=== PATIENT | female | born 1955 | race Caucasian/White ===

== ENCOUNTER → 2017-10-18 | Outpatient (CLI) | payer OTHER ==
[~2017-10-18] MED LIST: ACET500; ACET500 PO; ACID REDUCER 1150 MG PO; ALBIPROI INH; ALBU4 PO; ALBU90OI INH; ALBU90OI6 INH; ALBU90OI61; ALPR.5 PO; AMLO10 PO; AMLO5 PO; ASPI325 PO; ASPI325EC; ASPI81CH PO; ASPI81EC PO; ATOR40TA; ATOR80 PO; Allergy Medicat25 MG PO; Aspir 8181 MG PO; Aspirin EC81 MG PO; BUDE10.22 IH; BUDE6HFA INH; BUPR150ER PO; BUPR150ERA PO; CARV25 PO; CARV6.25 PO; CHLO4 PO; CHOL10002 PO; CIPR500 PO; CLOP75; CLOP75 PO; Coreg PO; DOCU100 PO; Dazidox10 MG; ERGO400 PO; ERYES400 PO; ESCI20; FENO145 PO; FENO48 PO; FENT25TP TD; FENT25TP TOP; FENT75TP TOP; FISH1000 PO; Fibercon625 MG PO; Florastor250 MG PO; Furosemide20 MG PO; GABA300 PO; GLIP5 PO; GLUCOSE TABS PO; Glucophage PO; Glucose4 GM PO; HYDACE5 PO; HYDGUAL120 PO; INSULANPEN SC; ISODIN10 PO; ISOMON30; ISOMON30 PO; KRILL OIL 1,001 EAC1 PO; LEVFLO500 PO; LISHYD2012 PO; LISHYD2025 PO; LISI10; LOSA50 PO; MAGGLU250 PO; MAGOXI400 PO; METF500; METF500 PO; METF500C; METO25ER; METO25ER PO; METO50ER; METR500 PO; MIRALAX119 GM PO; MIRT15 PO; MULTIVITS PO; MULVITMIND; MULVITMIND PO; MULVITMINE PO; Magnesium Gluconate PO; NITR.4SL SL; Nitrostat0.4 MG SL; OLME20; OLME20 PO; ONDA8 PO; OXYC10ER PO; OXYGEN; PIOG15 PO; POTA10T PO; PRAV20; PRED20 PO; PSYL5.85P PO; RANI150 PO; ROSU10TA PO; ROXICODONE5 MG PO; RXHYDACE PO; SIMV40 PO; SITA100T2 PO; SPIRIVA RESPIMAT4 GM; STOOL SOFTENER1 EAC1 PO; SULI200 PO; Senna Laxative8.6 MG PO; TIOT18 IH; TIOT18 INH; VITAMIN D31000 UNIT PO; [UNRECOGNIZED DRUG - REMARK]
== END ==
LOC: LAB SRC 15:14 → LAB SHORT 15:14
DX: E78.5 Hyperlipidemia, unspecified (principal); E11.40 Type 2 diabetes mellitus with diabetic neuropathy, unspecified; R94.4 Abnormal results of kidney function studies
CPT/HCPCS: 82043

== ENCOUNTER 2020-01-23 09:57 | Inpatient (IN) | payer OTHER ==
[~2020-01-23] VITALS: Ht 167.6 cm; Wt 92.1 kg
[~2020-01-23 09:57] MED LIST changes: -ACET500; +ATOR40TA PO; +BASAGLAR K100 UNIT/1 SC; +EUTHYROX50 MCG PO; +FAMO20 PO; +FISH OIL 1,2001 EAC7 PO; -GABA300 PO; -GLIP5 PO; +GLUCOSE4 GM PO; -Glucose4 GM PO; -INSULANPEN SC; +ISOSORBIDE MONO60 MG PO; -KRILL OIL 1,001 EAC1 PO; +METF500C PO; +MOBIC15 MG PO; +SYMBICORT 160-4.6 GM INH
[2020-01-23 11:20] LABS: BASOPHILS ABSOLUTE AUTO 0.02 K/mm3 (0.00-0.23); BASOPHILS PERCENT AUTO 0 % (0-2); EOSINOPHILS ABSOLUTE AUTO 0.15 K/mm3 (0.00-0.68); EOSINOPHILS PERCENT AUTO 2 % (0-6); Hematocrit 38.7 % (33.0-51.0); Hemoglobin 12.9 g/dL (11.5-16.0); IMMATURE GRAN ABSOLUTE AUTO 0.04 K/mm3 (0.00-0.10); IMMATURE GRAN PERCENT AUTO 1 % (0-1); LYMPHOCYTES ABSOLUTE AUTO 1.06 K/mm3 (0.84-5.20); LYMPHOCYTES PERCENT AUTO 13 % (21-46); MONOCYTES ABSOLUTE AUTO 0.54 K/mm3 (0.16-1.47); MONOCYTES PERCENT AUTO 7 % (4-13); Mean Corpuscular HGB 32.7 pg (26.0-34.0); Mean Corpuscular HGB Conc 33.3 g/dL (31.5-36.5); Mean Corpuscular Volume 98 fL (80-100); Mean Platelet Volume 10.4 fL (9.1-12.4); NEUTROPHILS ABSOLUTE AUTO 6.25 K/mm3 (1.96-9.15); NEUTROPHILS PERCENT AUTO 78 % (41-73); Platelet Count 221 K/mm3 (150-400); RDW Coefficient Variation 12.8 % (11.7-14.2); RDW Standard Deviation 45.8 fL (35.1-46.3); Red Blood Cell Count 3.94 M/mm3 (3.80-5.20); White Blood Cell Count 8.06 K/mm3 (4.00-11.30)
[2020-01-23 11:36] LABS: International Normalized Ratio 1.01; Prothrombin Time Results 10.8 Sec (9.7-11.5)
[2020-01-23 11:41] LABS: Alanine Aminotransfer (ALT/SGP 22 U/L (12-78); Albumin, Blood 2.9 g/dL (3.4-5.0); Albumin/Globulin Ratio 0.7 (0.8-1.8); Alk Phos 69 U/L (50-136); Anion Gap 8 mmol/L (6-16); Aspartate Aminotrans (AST/SGOT 13 U/L (12-37); Bilirubin, Total 0.7 mg/dL (0.1-1.0); Blood Urea Nitrogen 10 mg/dL (8-24); Bun/Creatinine Ratio 13.6 (12.0-20.0); CO2, Blood 24 mmol/L (21-32); Calcium, Blood 8.7 mg/dL (8.5-10.1); Chloride, Blood 107 mmol/L (98-108); Creatinine, Blood 0.73 mg/dL (0.40-1.00); Globulin, Blood 3.9 g/dL (2.2-4.0); Glomerular Filtration Rate >60 (60-); Glucose, Blood 301 mg/dL (70-99); Potassium, Blood 3.8 mmol/L (3.5-5.5); Sodium, Blood 139 mmol/L (136-145); Total Protein, Blood 6.8 g/dL (6.4-8.2)
[2020-01-23] MEDS ORDERED: GABA300 PO (15:24)
[2020-01-23] MEDS ORDERED: GLIP5 PO ×2 (15:25→15:26)
[2020-01-23] MEDS ORDERED: ACIDOPHILUS1 EAC3 PO (15:27)
[2020-01-23] MEDS ORDERED: Hair, Skin & N1 EACH PO (15:28)
[2020-01-23] MEDS ORDERED: BENEFIBER236 G1 PO (15:28)
[2020-01-23] MEDS ORDERED: CHLO4 PO (15:35)
[2020-01-23] MEDS ORDERED: [UNRECOGNIZED DRUG - CODE] TOP (15:41)
--- NOTE | 2020-01-23 17:13 | NUR ---
SHIFT SUMMARY PATIENT TO THE ROOM LATE THIS AFTERNOON. PATIENT ARRIVED TO THE UNIT AMBULATING WITH HER WALKER. PATIENT ALERT AND ORIENTED. PATIENT PARTICIPATED IN ADMISSION ASSESSMENTS. PATIENT STATES NO FURTHER NEEDS AT THIS TIME. PATIENT RESTING IN BED.
--- NOTE | 2020-01-23 23:03 | NUR ---
2200 PT ARRIVED PER CART FROM RESEARCH ATTORNEY; PTS LEFT GROIN AND RIGHT LATERAL FOOT DRESSING DRY AND INTACT; ALERT AND ORIENTED X 4; PTS RIGHT FOOT COLD WITH NO PULSE NOTED; VITAL SIGNS STABLE. 2300 PTS C/O RIGHT LEG PAIN RATED 10/10; RIGHT CALF EDEMATOUS AND PAINFUL; DR MONDRAGON NOTIFIED WITH ORDERS FOR FENTANYL 25-100MG, Q1H, PRN, PAIN.
[2020-01-23 23:12] LABS: International Normalized Ratio 1.08; Prothrombin Time Results 11.5 Sec (9.7-11.5)
[2020-01-24 00:44] LABS: Source, Urine Catheter
[2020-01-24 00:50] LABS: Appearance, Urine Clear (Clear); Bilirubin, Urine Neg (Neg); Blood, Urine 1+ (Neg); Color, Urine Yellow (P-Yellow); Glucose Qualitative, Urine 1+ (Neg); Ketones, Urine Neg (Neg); Leukocyte Esterase, Urine Neg (Neg); Nitrite, Urine Neg (Neg); Protein, Urine Neg (Neg); Urobilinogen, Urine NORM (Normal); pH, Urine 6.5 (5.0-8.0)
[2020-01-24 00:55] LABS: Bacteria Many /hpf; Red Blood Cells, Urine 0-2 /hpf (0-2); Squamous Epithelial Cells Not Seen /hpf (Few)
[2020-01-24 09:41] LABS: BASOPHILS ABSOLUTE AUTO 0.02 K/mm3 (0.00-0.23); BASOPHILS PERCENT AUTO 0 % (0-2); EOSINOPHILS ABSOLUTE AUTO 0.04 K/mm3 (0.00-0.68); EOSINOPHILS PERCENT AUTO 0 % (0-6); Hematocrit 33.7 % (33.0-51.0); IMMATURE GRAN ABSOLUTE AUTO 0.03 K/mm3 (0.00-0.10); IMMATURE GRAN PERCENT AUTO 0 % (0-1); LYMPHOCYTES ABSOLUTE AUTO 1.02 K/mm3 (0.84-5.20); LYMPHOCYTES PERCENT AUTO 11 % (21-46); MONOCYTES ABSOLUTE AUTO 0.68 K/mm3 (0.16-1.47); MONOCYTES PERCENT AUTO 7 % (4-13); Mean Corpuscular HGB 32.5 pg (26.0-34.0); Mean Corpuscular HGB Conc 32.6 g/dL (31.5-36.5); Mean Corpuscular Volume 100 fL (80-100); Mean Platelet Volume 10.3 fL (9.1-12.4); NEUTROPHILS ABSOLUTE AUTO 7.42 K/mm3 (1.96-9.15); NEUTROPHILS PERCENT AUTO 81 % (41-73); Platelet Count 147 K/mm3 (150-400); RDW Coefficient Variation 12.9 % (11.7-14.2); RDW Standard Deviation 46.5 fL (35.1-46.3); Red Blood Cell Count 3.38 M/mm3 (3.80-5.20); White Blood Cell Count 9.21 K/mm3 (4.00-11.30)
[2020-01-24 09:45] LABS: Alanine Aminotransfer (ALT/SGP 21 U/L (12-78); Albumin/Globulin Ratio 0.9 (0.8-1.8); Alk Phos 59 U/L (50-136); Anion Gap 5 mmol/L (6-16); Aspartate Aminotrans (AST/SGOT 17 U/L (12-37); Bilirubin, Total 0.5 mg/dL (0.1-1.0); Blood Urea Nitrogen 7 mg/dL (8-24); Bun/Creatinine Ratio 9.4 (12.0-20.0); CO2, Blood 28 mmol/L (21-32); Calcium, Blood 8.5 mg/dL (8.5-10.1); Chloride, Blood 107 mmol/L (98-108); Creatinine, Blood 0.74 mg/dL (0.40-1.00); Globulin, Blood 3.5 g/dL (2.2-4.0); Glomerular Filtration Rate >60 (60-); Glucose, Blood 217 mg/dL (70-99); Potassium, Blood 3.6 mmol/L (3.5-5.5); Sodium, Blood 140 mmol/L (136-145); Total Protein, Blood 6.5 g/dL (6.4-8.2)
--- NOTE | 2020-01-24 14:00 | NUR ---
UPDATE PT TAKEN TO DAY SURGERY. WILL AWAIT RETURN.
--- NOTE | 2020-01-24 16:46 | NUR ---
UPDATE PT RETURNED FROM PACU. VS STABLE. O2 SATS REMAIN ABOVE 90% ON RA. BP STABLE. PT DENIES ANY PAIN AT THIS TIME. PT HAD THIRD TOE ON THE RIGHT FOOT AMPUTATED. WOUND IS COVERED WITH GUAZE AND ALYSIA BANDAGE. ORDERS TO KEEP DRY AND INTACT UNTIL NEW ORDERS PROVIDED. PT AWAKE AND ALERT. WILL CONTINUE TO MONITOR CLOSELY.
[2020-01-25 04:16] LABS: BASOPHILS ABSOLUTE AUTO 0.01 K/mm3 (0.00-0.23); BASOPHILS PERCENT AUTO 0 % (0-2); EOSINOPHILS PERCENT AUTO 0 % (0-6); Hematocrit 30.3 % (33.0-51.0); IMMATURE GRAN ABSOLUTE AUTO 0.03 K/mm3 (0.00-0.10); IMMATURE GRAN PERCENT AUTO 0 % (0-1); LYMPHOCYTES ABSOLUTE AUTO 0.66 K/mm3 (0.84-5.20); LYMPHOCYTES PERCENT AUTO 7 % (21-46); MONOCYTES PERCENT AUTO 5 % (4-13); Mean Corpuscular HGB 32.6 pg (26.0-34.0); Mean Corpuscular Volume 99 fL (80-100); Mean Platelet Volume 10.1 fL (9.1-12.4); NEUTROPHILS ABSOLUTE AUTO 7.81 K/mm3 (1.96-9.15); NEUTROPHILS PERCENT AUTO 88 % (41-73); Platelet Count 184 K/mm3 (150-400); RDW Coefficient Variation 12.7 % (11.7-14.2); RDW Standard Deviation 45.2 fL (35.1-46.3); Red Blood Cell Count 3.07 M/mm3 (3.80-5.20); White Blood Cell Count 8.91 K/mm3 (4.00-11.30)
[2020-01-25 04:35] LABS: Alanine Aminotransfer (ALT/SGP 18 U/L (12-78); Albumin, Blood 2.7 g/dL (3.4-5.0); Albumin/Globulin Ratio 0.8 (0.8-1.8); Alk Phos 58 U/L (50-136); Anion Gap 6 mmol/L (6-16); Aspartate Aminotrans (AST/SGOT 9 U/L (12-37); Bilirubin, Total 0.5 mg/dL (0.1-1.0); Blood Urea Nitrogen 12 mg/dL (8-24); Bun/Creatinine Ratio 14.8 (12.0-20.0); CO2, Blood 27 mmol/L (21-32); Calcium, Blood 8.4 mg/dL (8.5-10.1); Chloride, Blood 107 mmol/L (98-108); Creatinine, Blood 0.81 mg/dL (0.40-1.00); Globulin, Blood 3.6 g/dL (2.2-4.0); Glomerular Filtration Rate >60 (60-); Glucose, Blood 273 mg/dL (70-99); Potassium, Blood 3.6 mmol/L (3.5-5.5); Sodium, Blood 140 mmol/L (136-145); Total Protein, Blood 6.3 g/dL (6.4-8.2)
--- NOTE | 2020-01-25 07:38 | NUR ---
SHIFT SUMMARY PT A&O; DENIES CHEST PAIN; VSS; NSR NOTED ON TELE; R LEG WOUND COVERED, BANDAGE C/D/I; GAUZE ON AMPUTATED THIRD TOE C/D/I; O2 SATS >93 ON RA; DENIES SOB; PT DENIED NEED FOR PAIN MEDS; REPOSITIONS SELF FREQUENTLY; CALLLS APPROPRIATELY; NO DISTRESS NOTED T/O SHIFT; CALL LIGHT IN REACH; BED IN LOWEST POSITION; REPORT GIVEN TO DAY SHIFT RN.
--- NOTE | 2020-01-25 15:41 | NUR ---
SHIFT SUMMARY PT A&Ox4; CALM AND COOPERATIVE WITH CARE. PT RESTING IN BED DURING SHIFT, PIVOT TRANSFER TO WHEELCHAIR OR BEDSIDE COMMODE. PT REPORTS TENDERNESS TO RLE; DENIES NEED FOR INTERVENTION. PT DENIES SOB, NAUSEA, DIZZINESS AND CHEST PAIN. DRESSING TO RIGHT CALF CHANGED BY DR AT BEDSIDE. VSS. NO OTHER ACUTE CHANGES NOTED. PT EDUCATED ON DISCHARGE INSCTRUCTIONS, MEDICATIONS, FOLLOW UP APPOINTMENT AND WOUND CARE. PT LEFT ROOM VIA WHEELCHAIR AT 1345. PT STATES DAUGHTER WILL BE HELPING HER AT HOME
== END 2020-01-25 13:45 | disposition home or self-care (01) | DRG 271 ==
LOC: ER 09:57 → PCU 12:18 → SURS 12:18 → MEDS 12:18 → PCU 22:08
PROVIDERS: Emergency Medicine; Internal Medicine; Radiology Diagnostic Radiology; ADMIT Internal Medicine
PROC: 047M3Z1 Dilation of Right Popliteal Artery using Drug-Coated Balloon, Percutaneous Approach (ICD-10-PCS; principal; 2020-01-23)
PROC: 04CK3ZZ Extirpation of Matter from Right Femoral Artery, Percutaneous Approach (ICD-10-PCS; 2020-01-23)
PROC: 047K35Z Dilation of Right Femoral Artery with Two Drug-eluting Intraluminal Devices, Percutaneous Approach (ICD-10-PCS; 2020-01-23)
PROC: 047P3ZZ Dilation of Right Anterior Tibial Artery, Percutaneous Approach (ICD-10-PCS; 2020-01-23)
PROC: 047R3ZZ Dilation of Right Posterior Tibial Artery, Percutaneous Approach (ICD-10-PCS; 2020-01-23)
PROC: 047T3ZZ Dilation of Right Peroneal Artery, Percutaneous Approach (ICD-10-PCS; 2020-01-23)
PROC: 047C3ZZ Dilation of Right Common Iliac Artery, Percutaneous Approach (ICD-10-PCS; 2020-01-23)
PROC: 047K3Z1 Dilation of Right Femoral Artery using Drug-Coated Balloon, Percutaneous Approach (ICD-10-PCS; 2020-01-23)
PROC: 04CM3ZZ Extirpation of Matter from Right Popliteal Artery, Percutaneous Approach (ICD-10-PCS; 2020-01-23)
PROC: B41D1ZZ Fluoroscopy of Aorta and Bilateral Lower Extremity Arteries using Low Osmolar Contrast (ICD-10-PCS; 2020-01-23)
PROC: 0KNS0ZZ Release Right Lower Leg Muscle, Open Approach (ICD-10-PCS; 2020-01-24)
PROC: 04Q Lower Arteries, Repair (ICD-10-PCS; 2020-01-24)
PROC: 0KNS0ZZ Release Right Lower Leg Muscle, Open Approach (ICD-10-PCS; 2020-01-24)
PROC: 0Y6T0Z0 Detachment at Right 3rd Toe, Complete, Open Approach (ICD-10-PCS; 2020-01-24)
DX: E11.52 Type 2 diabetes mellitus with diabetic peripheral angiopathy with gangrene (principal); M79.A21 Nontraumatic compartment syndrome of right lower extremity; E78.5 Hyperlipidemia, unspecified; E66.01 Morbid (severe) obesity due to excess calories; K21.9 Gastro-esophageal reflux disease without esophagitis; E03.9 Hypothyroidism, unspecified; J44.9 Chronic obstructive pulmonary disease, unspecified; F17.210 Nicotine dependence, cigarettes, uncomplicated; Z79.4 Long term (current) use of insulin; Z68.32 Body mass index [BMI] 32.0-32.9, adult
CPT/HCPCS: 36415; 37221; 37227; 37228; 37232; 75625; 75716; 75774; 76937; 80053; 81001; 82947; 85025; 85049; 85347; 85610; 85730; 86850; 86900; 86901; 87077; 87086; 87186; 88305; 88311; 94640; 94760; 99152; 99153; 99284; A9270-GY; C1714; C1725; C1760; C1769; C1874; C1876; C1884; C1887; C1894; C2623; J0690; J1100; J1644; J1650; J2250; J2370; J2405; J2704; J3010; J7030; J7050; J7120; Q9967; U0002

== ENCOUNTER 2020-02-20 06:16 | Day surgery (SDC) | payer OTHER ==
[~2020-02-20] VITALS: Wt 94.0 kg
[~2020-02-20 06:16] MED LIST changes: +ACIDOPHILUS1 EAC3 PO; +BASAGLAR SC; +BENEFIBER236 G1 PO; +GABA300 PO; +GLIP5 PO; +Hair, Skin & N1 EACH PO; +[UNRECOGNIZED DRUG - CODE] TOP
--- NOTE | 2020-02-20 10:30 | NUR ---
PT BROUGHT BACK TO RECOVERY ROOM VIA GURNEY, IN SUPINE POSITION. RIGHT GROIN SITE SOFT, NON TENDER WITH NO BLEEDING OR OOZING. PT APPEARS DROWSY, RESPONDS TO VERBAL STIMULI. DENIES PAIN. CALL LIGHT IN REACH.
--- NOTE | 2020-02-20 11:37 | NUR ---
HOB RAISED TO 45 DEGREES, RIGHT GROIN SITE REMAINS SOFT NON TENDER WITH NO ACTIVE BLEEDING, OOZING, OR PAIN. TEGADERM CLEAN, DRY, INTACT. PT TOLERATES PO FLUIDS. C/O BACK PAIN, REPOSITIONED FOR COMFORT. CALL LIGHT IN REACH. AWAITING LUNCH TRAY. WILL CONTINUE TO MONITOR.
--- NOTE | 2020-02-20 12:13 | NUR ---
PT AT 90 DEGREES EATING LUNCH, RIGHT GROIN SITE REMAINS STABLE. BP ELEVATED, MEDICATED WITH HOME MEDS PER DR MONDRAGON TO ASSIST WITH HTN. PT CALLING DAUGHTER TO LET HER KNOW WHEN DISCHARGE WILL BE, CALL LIGHT IN REACH.
--- NOTE | 2020-02-20 12:51 | NUR ---
DR. MONDRAGON AT BEDSIDE, FLOW METER AND DOPPLER DONE TO LEFT FOOT. LEFT POST TIBIAL PULSE STRONG DOPPLER, MONOPHASIC ON LEFT DORSAL PEDAL. NEW PRESCRIPTIONS FOR XARELTO AND PLAVIX ORDERED. PT UP AT BEDSIDE, GETTING DRESSED. BP DECREASING, WILL CONTINUE TO MONITOR.
[2020-02-20] MEDS ORDERED: XARELTO2.5 MG PO (12:55)
[2020-02-20] MEDS ORDERED: CLOP75 PO (12:56)
--- NOTE | 2020-02-20 13:00 | NUR ---
PT UP OUT OF BED, AMBULATES WITH SLOW STEADY GAIT. UNMEASURED VOID. RIGHT GROIN SITE STABLE, DRESSING C/D/I. GETS DRESSED WITH NO NEEDED ASSISTANCE. DAUGHTER ARRIVES TO DRIVE PT HOME, IV REMOVED FROM LAC WITH CATH INTACT, PRESSURE DRESSING APPLIED. VERBALIZED UNDERSTANDING OF DISCHARGE INSTRUCTIONS PROVIDED WITH PAPERWORK IN FOLDER. ENCOURAGED TO FOLLOW UP SCHEDULED. NADN AT TIME OF DISCHARGE.
== END 2020-02-20 14:20 | disposition home or self-care (01) ==
LOC: MHTC 06:16
DX: E11.51 Type 2 diabetes mellitus with diabetic peripheral angiopathy without gangrene (principal); I70.211 Atherosclerosis of native arteries of extremities with intermittent claudication, right leg; I10 Essential (primary) hypertension; E78.5 Hyperlipidemia, unspecified; J44.9 Chronic obstructive pulmonary disease, unspecified; Z88.5 Allergy status to narcotic agent; Z88.8 Allergy status to other drugs, medicaments and biological substances; Z79.899 Other long term (current) drug therapy; Z79.82 Long term (current) use of aspirin; Z79.84 Long term (current) use of oral hypoglycemic drugs; Z87.891 Personal history of nicotine dependence
CPT/HCPCS: 37221; 37227; 37229; 75716; 75774; 82947; 85347; 99152; 99153; C1714; C1725; C1760; C1769; C1874; C1876; C1884; C1885; C1887; C1894; C2623; J1644; J2250; J3010; J7030; Q9967

== ENCOUNTER 2020-04-28 12:01 | Inpatient (IN) | payer OTHER ==
[~2020-04-28] VITALS: Ht 167.6 cm; Wt 89.9 kg
[~2020-04-28 12:01] MED LIST changes: +XARELTO2.5 MG PO
[2020-04-28 12:29] LABS: BASOPHILS ABSOLUTE AUTO 0.04 K/mm3 (0.00-0.23); BASOPHILS PERCENT AUTO 0 % (0-2); EOSINOPHILS ABSOLUTE AUTO 0.09 K/mm3 (0.00-0.68); EOSINOPHILS PERCENT AUTO 1 % (0-6); Hematocrit 33.6 % (33.0-51.0); Hemoglobin 10.6 g/dL (11.5-16.0); IMMATURE GRAN ABSOLUTE AUTO 0.09 K/mm3 (0.00-0.10); IMMATURE GRAN PERCENT AUTO 1 % (0-1); LYMPHOCYTES ABSOLUTE AUTO 1.13 K/mm3 (0.84-5.20); LYMPHOCYTES PERCENT AUTO 7 % (21-46); MONOCYTES ABSOLUTE AUTO 0.98 K/mm3 (0.16-1.47); MONOCYTES PERCENT AUTO 6 % (4-13); Mean Corpuscular HGB Conc 31.5 g/dL (31.5-36.5); Mean Corpuscular Volume 89 fL (80-100); Mean Platelet Volume 9.5 fL (9.1-12.4); NEUTROPHILS ABSOLUTE AUTO 13.55 K/mm3 (1.96-9.15); NEUTROPHILS PERCENT AUTO 85 % (41-73); Platelet Count 370 K/mm3 (150-400); RDW Coefficient Variation 15.8 % (11.7-14.2); RDW Standard Deviation 51.2 fL (35.1-46.3); Red Blood Cell Count 3.78 M/mm3 (3.80-5.20); White Blood Cell Count 15.88 K/mm3 (4.00-11.30)
[2020-04-28 12:43] LABS: International Normalized Ratio 1.1; Prothrombin Time Results 11.7 Sec (9.7-11.5)
[2020-04-28 12:49] LABS: Alanine Aminotransfer (ALT/SGP 13 U/L (12-78); Albumin, Blood 2.1 g/dL (3.4-5.0); Albumin/Globulin Ratio 0.5 (0.8-1.8); Alk Phos 79 U/L (50-136); Anion Gap 7 mmol/L (6-16); Aspartate Aminotrans (AST/SGOT 16 U/L (12-37); Bilirubin, Total 0.2 mg/dL (0.1-1.0); Blood Urea Nitrogen 8 mg/dL (8-24); Bun/Creatinine Ratio 12.7 (12.0-20.0); CO2, Blood 25 mmol/L (21-32); Calcium, Blood 8.2 mg/dL (8.5-10.1); Chloride, Blood 109 mmol/L (98-108); Creatinine, Blood 0.63 mg/dL (0.40-1.00); Globulin, Blood 4.3 g/dL (2.2-4.0); Glomerular Filtration Rate >60 (60-); Glucose, Blood 134 mg/dL (70-99); Potassium, Blood 3.2 mmol/L (3.5-5.5); Sodium, Blood 141 mmol/L (136-145); Total Protein, Blood 6.4 g/dL (6.4-8.2)
[2020-04-28] MEDS ORDERED: CLOP75 PO (12:50)
[2020-04-28] MEDS ORDERED: SYMBICORT 160-4.6 GM INH (12:51)
[2020-04-28] MEDS ORDERED: FAMO40 PO (12:51)
[2020-04-28] MEDS ORDERED: AMLO10 PO (12:51)
[2020-04-28] MEDS ORDERED: Mobic15 MG PO (12:51)
[2020-04-28] MEDS ORDERED: BASAGLAR K100 UNIT/5 SC (12:52)
[2020-04-28] MEDS ORDERED: ISOSORBIDE MONO60 MG PO (12:52)
[2020-04-28] MEDS ORDERED: EUTHYROX50 MCG PO (12:52)
[2020-04-28] MEDS ORDERED: ATOR40TA PO (12:53)
[2020-04-28] MEDS ORDERED: XARELTO2.5 M1 PO (12:53)
[2020-04-28] MEDS ORDERED: GLIP5 PO ×2 (12:53→12:54)
[2020-04-28] MEDS ORDERED: TIOT18 INH (12:54)
[2020-04-28] MEDS ORDERED: GABA100 PO (12:54)
[2020-04-28] MEDS ORDERED: METF500C PO (12:55)
[2020-04-28 13:03] LABS: Source, Urine Clean Catch
[2020-04-28 13:07] LABS: Bilirubin, Urine Neg (Neg); Blood, Urine Neg (Neg); Glucose Qualitative, Urine Neg (Neg); Ketones, Urine Neg (Neg); Leukocyte Esterase, Urine 1+ (Neg); Nitrite, Urine Pos (Neg); Protein, Urine Neg (Neg); Urobilinogen, Urine NORM (Normal); pH, Urine 6.5 (5.0-8.0)
[2020-04-28 13:21] LABS: Appearance, Urine Hazy (Clear); Color, Urine Yellow (P-Yellow)
[2020-04-28 13:22] LABS: Bacteria Many /hpf; Red Blood Cells, Urine Not Seen /hpf (0-2); Squamous Epithelial Cells Not Seen /hpf (Few); White Blood Cells, Urine Not Seen /hpf (0-5)
[2020-04-28] MEDS ORDERED: Norco 10-325 T1 EACH PO (15:54)
[2020-04-28] MEDS ORDERED: ONDA4ODT MM (15:54)
[2020-04-28] MEDS ORDERED: Cleocin HCl300 MG PO (15:54)
[2020-04-28 17:41] LABS: Influenza A, PCR Negative (NEGATIVE); Influenza B, PCR Negative (NEGATIVE); Resp Syncytial Virus, PCR Negative (NEGATIVE); SARS-Cov-2 (COVID-19) PCR, MMC Negative (NEGATIVE)
[2020-04-28 18:51] LABS: Hematocrit 31.6 % (33.0-51.0); Hemoglobin 9.8 g/dL (11.5-16.0)
--- NOTE | 2020-04-28 19:40 | NUR ---
REPORT RECEIVED FROM NIKKI GUERRERO.
[2020-04-28 21:32] LABS: Hematocrit 30.1 % (33.0-51.0); Hemoglobin 9.6 g/dL (11.5-16.0)
--- NOTE | 2020-04-28 21:35 | NUR ---
PT TO ICU3 FROM ED WITH C/O LOWER ABD PAIN X 1 WK AND RECTAL BLEEDING THAT STARTED TODAY. VSS. SBP IN THE 110-120S, HR IN THE 70-80S. LUNG SOUNDS ARE WHEEZY, BUT SATS WELL ON RA. ABD SLIGHTLY MORE DISTENDED THAN NORMAL ACCORDING TO PT. BT X 4 NORMOACTIVE. PT IS PASSING GAS AND IS HAVING SOME BOWEL INCONTINENCE. THE INCONTINENCE IS NEW FOR HER. CHANGED HER ATTENDS. BM WAS BROWN AND LIQUID AND SMALL. NO BLOOD NOTED. SHE DOES HAVE SOME REDNESS BETWEEN HER BUTTOCKS AND A BARRIER CREAM WAS APPLIED. MCCLURE IN PLACE DRAINING YELLOW URINE. PT CAME TO ICU WITH 1 PIV IN RFA. LR AND KCL INFUSING THROUGHT THAT IV CURRENTLY. 2ND IV STARTED IN LFA. PATENT AND SL. PT, SO FAR, GIVEN 1 DOSE OF DILAUDID (0.2MG) IV FOR ABD PAIN 12/15. PT CURRENTLY RESTING. WILL CONTINUE TO MONITOR
[2020-04-29 05:46] LABS: BASOPHILS ABSOLUTE AUTO 0.05 K/mm3 (0.00-0.23); BASOPHILS PERCENT AUTO 0 % (0-2); EOSINOPHILS ABSOLUTE AUTO 0.09 K/mm3 (0.00-0.68); EOSINOPHILS PERCENT AUTO 1 % (0-6); Hemoglobin 9.9 g/dL (11.5-16.0); IMMATURE GRAN ABSOLUTE AUTO 0.08 K/mm3 (0.00-0.10); IMMATURE GRAN PERCENT AUTO 1 % (0-1); LYMPHOCYTES ABSOLUTE AUTO 1.17 K/mm3 (0.84-5.20); LYMPHOCYTES PERCENT AUTO 7 % (21-46); MONOCYTES ABSOLUTE AUTO 1.17 K/mm3 (0.16-1.47); MONOCYTES PERCENT AUTO 7 % (4-13); Mean Corpuscular HGB 28.7 pg (26.0-34.0); Mean Corpuscular HGB Conc 31.9 g/dL (31.5-36.5); Mean Corpuscular Volume 90 fL (80-100); Mean Platelet Volume 9.2 fL (9.1-12.4); NEUTROPHILS ABSOLUTE AUTO 14.11 K/mm3 (1.96-9.15); NEUTROPHILS PERCENT AUTO 85 % (41-73); Platelet Count 352 K/mm3 (150-400); RDW Coefficient Variation 15.7 % (11.7-14.2); RDW Standard Deviation 51.5 fL (35.1-46.3); Red Blood Cell Count 3.45 M/mm3 (3.80-5.20); White Blood Cell Count 16.67 K/mm3 (4.00-11.30)
[2020-04-29 05:58] LABS: Hematocrit 32.8 % (33.0-51.0); Hemoglobin 10.4 g/dL (11.5-16.0)
--- NOTE | 2020-04-29 06:04 | NUR ---
NO ACUTE CHANGES T/O SHIFT. PT SLEPT MAJORITY OF SHIFT. RECEIVED DILAUDID X 2 WITH GOOD PAIN RELIEF. A&O X 4. AFEBRILE. MAIN C/O PAIN. WILL PASS REPORT TO ONCOMING SHIFT
[2020-04-29 06:19] LABS: Alanine Aminotransfer (ALT/SGP 10 U/L (12-78); Albumin/Globulin Ratio 0.5 (0.8-1.8); Alk Phos 77 U/L (50-136); Anion Gap 6 mmol/L (6-16); Aspartate Aminotrans (AST/SGOT 9 U/L (12-37); Bilirubin, Total 0.3 mg/dL (0.1-1.0); Blood Urea Nitrogen 5 mg/dL (8-24); Bun/Creatinine Ratio 6.8 (12.0-20.0); CO2, Blood 27 mmol/L (21-32); Calcium, Blood 8.5 mg/dL (8.5-10.1); Chloride, Blood 107 mmol/L (98-108); Creatinine, Blood 0.74 mg/dL (0.40-1.00); Globulin, Blood 4.1 g/dL (2.2-4.0); Glomerular Filtration Rate >60 (60-); Glucose, Blood 51 mg/dL (70-99); Potassium, Blood 3.2 mmol/L (3.5-5.5); Sodium, Blood 140 mmol/L (136-145); Total Protein, Blood 6.1 g/dL (6.4-8.2)
[2020-04-29 06:25] LABS: International Normalized Ratio 1.11; Prothrombin Time Results 11.8 Sec (9.7-11.5)
--- NOTE | 2020-04-29 06:32 | NUR ---
PT GLUCOSE THIS AM WITH LAB DRAW 51. PT GIVEN 10 OZ APPLEJUICE. WILL RECHECK CHEM BG. PT HAS ZERO COMPLAINTS AT THIS TIME. ASYMPTOMATIC HYPOGLYCEMIA AT THIS TIME.
[2020-04-29 09:12] LABS: Hematocrit 32.1 % (33.0-51.0); Hemoglobin 10.3 g/dL (11.5-16.0)
--- NOTE | 2020-04-29 11:50 | NUR ---
ASSUMED CARE AT 0700 PT IS LAYING IN BED AND IS ABLE TO MAKE HER NEEDS KNOWN. PT IS MOANING IN PAIN AND STATES THAT THIS PAIN IS IN HER SALOME AREA; THIS PAIN COMES AND GOES AND IS "DIFFICULT FOR HER TO MANAGE" RATING THIS A 7/10. PRN PAIN MEDICATION GIVEN AND HELPFUL BRINGING HER PAIN DOWN TO A 4/10. O2 SAT ON 2L NC >95%. HR 70'S. SBP 100-130'S. AFIBRILE. MCCLURE IN PLACE AND DRAINING YELLOW, CLEAR URINE. WOUND VAC TO RT THIRD TOE. DR REED PROVIDED ORDERS TO CHANGE STATUS TO MEDICAL FLOOR. ORDERS PROVIDED BY DR GRANDA TO HAVE DR HERRON CONSULT PT. SEE SHIFT ASSESSMENT FOR FULL ASSESSMENT.
--- NOTE | 2020-04-29 12:00 | NUR ---
UPDATE DR GRANDA IN TO SEE PT. DR MADRIGAL PROVIDED ORDERS FOR CHANGE IN DIET TO CLEAR LIQUIDS.
[2020-04-29 13:26] LABS: Hematocrit 35.5 % (33.0-51.0); Hemoglobin 10.8 g/dL (11.5-16.0)
--- NOTE | 2020-04-29 15:33 | NUR ---
UPDATE RN'S OVERHEARD PT CRYING OUT IN PAIN AND WENT TO CHECK ON HER. PT WAS VERY UNCOMFORTABLE, CRYING, AND THRASHING AROUND IN PAIN. PT STATED THIS PAIN SEVERE RECTAL PAIN. PT ALSO HAD AN INCONTINENT BM. THIS RN AND ANOTHER HELPED CLEAN PT UP. PT HAD FECAL COVERING HER VAGINA AND MCCLURE CATH AND WAS VERY SENSITIVE TO THE CLEAN UP. DR REED INSTRUCTED TO GIVE PRN DILAUDID EARLIER THAN THE 2HR'S. PRN HELPFUL BRINING PAIN LEVEL FROM A 10 TO A 5. PT BP TOLERATED DILAUDID.
--- NOTE | 2020-04-29 18:29 | NUR ---
END OF SHIFT SUMMARY PT CONT TO LAY IN BED AND IS ALERT AND ORIENTED X4. PT IS ABLE TO SHIFT HIPS AND WEIGHT FROM LT TO RT AND AVOIDS LAYING ON HER BACK DUE TO PAIN IN HER SALOME AREA. DILAUDID GIVEN 5 TIMES FOR PAIN TO SALOME AREA AND HELPFUL BRING PAIN RATING DOWN TO 3-4. O2 SAT >95% ON RA. SBP 100-130'S. HR 70-80'S. AFIBRILE. SEE PREVIOUS NOTE ABOUT FECAL MATTER COMING OUT OF PT VAGINA. MCCLURE PATENT AND DRAINING TO GRAVITY. GLUCOSE CHECKED AT [address] GRANDA NOTIFIED AND NO NEW ORDERS PROVIDED. AFTER ORAL INTAKE OF APPLE JUICE, JELLO, AND CLEAR ENSURE, GLUCOSE INCREASED TO 102. PLAN IS TO SEND PT [place] TO [facility] TOMORROW 04/30/20. WILL REPORT TO PM RN WHEN AVAILABLE.
--- NOTE | 2020-04-29 21:42 | NUR ---
TRANSFER TO MEDICAL PT MEDICAL NO TELE STATUS. A&O X4. VSS. SPO2 > 92% ON RA. PT C/O 12/15 "RECTUM" PAIN, MEDICATED W/ PRN IV DILAUDID W/ PT REPORT OF PAIN NOW 09/14. PT INCONTINENT OF STOOL, ATTENDS IN PLACE. PT DENIES ABILITY TO STAND, STATING "I'M TOO WEAK, & I FEEL LIKE IF I STOOD UP MY GUTS WOULD FALL OUT." MCCLURE CATH PATENT & DRAINING CLEAR YELLOW STOOL. LR GTT INFUSING PER ORDERS. R FOOT WOUND WRAPPED W/ GAUZE. 2ND TOE NOTED TO BE BLACK W/ PT STATING "IT FEELS LIKE IT'S GOING TO FALL OFF SOON." PT CBG's LOW DURING DAY. PT ON CLEAR LIQUID DIET W/ Q6H CBG MONITORING. BEDTIME SEMGLEE HELD PER CLINICAL JUDGEMENT. REPORT GIVEN TO MEDICAL FLOOR RN & PT TRANSFERED BY KOBE W/ PT JONATHAN & SAMIR VIA BED @ APPROX 2145.
--- NOTE | 2020-04-29 23:59 | NUR ---
@2149- PT. TRANSFERRED FROM ICU, REPORT RECEIVED FROM LISA JORDAN. PT. ARRIVED VIA BED A&O, C/O PAIN 12/15 FROM HER RECTUM. NURSING STAFF ASSISTED PT. ONTO MEDICAL FLOOR BED. @2209- PT. MEDICATED FOR PAIN PER EMAR. RESTING QUIETLY IN BED. CALL LIGHT WITHIN REACH AND SIDE RAILS UPX2. WILL CONT TO MONITOR.
[2020-04-30 04:48] LABS: BASOPHILS ABSOLUTE AUTO 0.03 K/mm3 (0.00-0.23); BASOPHILS PERCENT AUTO 0 % (0-2); EOSINOPHILS PERCENT AUTO 1 % (0-6); Hematocrit 32.6 % (33.0-51.0); Hemoglobin 10.6 g/dL (11.5-16.0); IMMATURE GRAN ABSOLUTE AUTO 0.06 K/mm3 (0.00-0.10); IMMATURE GRAN PERCENT AUTO 1 % (0-1); LYMPHOCYTES ABSOLUTE AUTO 0.97 K/mm3 (0.84-5.20); LYMPHOCYTES PERCENT AUTO 8 % (21-46); MONOCYTES PERCENT AUTO 8 % (4-13); Mean Corpuscular HGB 28.7 pg (26.0-34.0); Mean Corpuscular HGB Conc 32.5 g/dL (31.5-36.5); Mean Corpuscular Volume 88 fL (80-100); Mean Platelet Volume 9.5 fL (9.1-12.4); NEUTROPHILS ABSOLUTE AUTO 9.75 K/mm3 (1.96-9.15); NEUTROPHILS PERCENT AUTO 83 % (41-73); Platelet Count 354 K/mm3 (150-400); RDW Coefficient Variation 15.8 % (11.7-14.2); RDW Standard Deviation 50.6 fL (35.1-46.3); Red Blood Cell Count 3.69 M/mm3 (3.80-5.20); White Blood Cell Count 11.81 K/mm3 (4.00-11.30)
[2020-04-30 05:09] LABS: Anion Gap 8 mmol/L (6-16); Blood Urea Nitrogen 5 mg/dL (8-24); Bun/Creatinine Ratio 7.3 (12.0-20.0); CO2, Blood 28 mmol/L (21-32); Calcium, Blood 8.6 mg/dL (8.5-10.1); Chloride, Blood 105 mmol/L (98-108); Creatinine, Blood 0.69 mg/dL (0.40-1.00); Glomerular Filtration Rate >60 (60-); Glucose, Blood 134 mg/dL (70-99); Potassium, Blood 3.1 mmol/L (3.5-5.5); Sodium, Blood 141 mmol/L (136-145)
--- NOTE | 2020-04-30 05:56 | NUR ---
SHIFT SUMMARY- PT. A&O, PAINFUL T/O THE NIGHT, MEDICATED PER EMAR WITH MODERATE RELIEF. SLEPT ON/OFF, LAYS ON HER SIDE DUE TO PAIN IN SALOME AREA. INCONT OF STOOL, PT STATES SEEPS OUT, ATTENDS IN PLACE. MCCLURE CATHETER PATENT AND DRAINING. VSS. CALL LIGHT WITHIN REACH AND SIDE RAILS UPX2. WILL CONT TO MONITOR.
--- NOTE | 2020-04-30 16:10 | NUR ---
SHIFT SUMMARY PATIENT MEDICATED X3 FOR PAIN AND X1 FOR ANXIETY. PATIENT DENIES NAUSEA AND SHORTNESS OF BREATH. PATIENT REPORTS SHE CANNOT STAND DUE TO PAIN AND WEAKNESS AT THIS TIME. MCCLURE PATENT AND DRAINING. ATTENDS IN PLACE DUE TO CONSTANT LIQUID STOOLS. ROAD PASSENGER FIRER CONSULT WITH DR. RODRIGEZ TODAY.
[2020-05-01 04:39] LABS: BASOPHILS ABSOLUTE AUTO 0.03 K/mm3 (0.00-0.23); BASOPHILS PERCENT AUTO 0 % (0-2); EOSINOPHILS ABSOLUTE AUTO 0.14 K/mm3 (0.00-0.68); EOSINOPHILS PERCENT AUTO 2 % (0-6); Hematocrit 34.1 % (33.0-51.0); Hemoglobin 10.5 g/dL (11.5-16.0); IMMATURE GRAN ABSOLUTE AUTO 0.04 K/mm3 (0.00-0.10); IMMATURE GRAN PERCENT AUTO 0 % (0-1); LYMPHOCYTES ABSOLUTE AUTO 1.18 K/mm3 (0.84-5.20); LYMPHOCYTES PERCENT AUTO 12 % (21-46); MONOCYTES ABSOLUTE AUTO 0.83 K/mm3 (0.16-1.47); MONOCYTES PERCENT AUTO 9 % (4-13); Mean Corpuscular HGB 27.5 pg (26.0-34.0); Mean Corpuscular HGB Conc 30.8 g/dL (31.5-36.5); Mean Corpuscular Volume 89 fL (80-100); Mean Platelet Volume 9.4 fL (9.1-12.4); NEUTROPHILS ABSOLUTE AUTO 7.26 K/mm3 (1.96-9.15); NEUTROPHILS PERCENT AUTO 77 % (41-73); Platelet Count 351 K/mm3 (150-400); RDW Coefficient Variation 15.6 % (11.7-14.2); RDW Standard Deviation 51.4 fL (35.1-46.3); Red Blood Cell Count 3.82 M/mm3 (3.80-5.20); White Blood Cell Count 9.48 K/mm3 (4.00-11.30)
[2020-05-01 04:58] LABS: Alanine Aminotransfer (ALT/SGP 25 U/L (12-78); Albumin, Blood 2.1 g/dL (3.4-5.0); Albumin/Globulin Ratio 0.5 (0.8-1.8); Alk Phos 100 U/L (50-136); Anion Gap 6 mmol/L (6-16); Aspartate Aminotrans (AST/SGOT 13 U/L (12-37); Bilirubin, Total 0.3 mg/dL (0.1-1.0); Blood Urea Nitrogen 9 mg/dL (8-24); Bun/Creatinine Ratio 10.7 (12.0-20.0); CO2, Blood 29 mmol/L (21-32); Calcium, Blood 8.7 mg/dL (8.5-10.1); Chloride, Blood 107 mmol/L (98-108); Creatinine, Blood 0.84 mg/dL (0.40-1.00); Globulin, Blood 4.3 g/dL (2.2-4.0); Glomerular Filtration Rate >60 (60-); Glucose, Blood 181 mg/dL (70-99); Potassium, Blood 3.4 mmol/L (3.5-5.5); Sodium, Blood 142 mmol/L (136-145); Total Protein, Blood 6.4 g/dL (6.4-8.2)
--- NOTE | 2020-05-01 06:27 | NUR ---
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 PT IS A&O X 4, BEDREST D/T PAIN WITH MOVEMENT. INCONTINENT OF STOOL, MCCLURE IN PLACE PATENT AND DRAINING. SHE WAS MEDICATED 2X WITH IV DILAUDID, AND ONCE WITH PO OXYCODONE FOR PAIN. NO C/O NAUSEA OR SOB. VITAL SIGNS STABLE. NO ACUTE CHANGES IN PT CONDITION NOTED. WILL CONTINUE TO MONITOR AND TREAT PER EMAR UNTIL HAND OFF TO DAY SHIFT RN.
--- NOTE | 2020-05-01 08:12 | NUR ---
CALLED DR GRANDA, AMADAAYED SWITCH IV FAMOTADINE TO PO SAME DOSAGES. CLARIFIED IV, D/C FLUIDS.
--- NOTE | 2020-05-01 08:14 | NUR ---
PT C/O PAIN, STATES WE NOT DEALING WITH ADEQUATELY. MEDICATED PER EMAR. WILL FOLLOW,
--- NOTE | 2020-05-01 09:00 | NUR ---
PT PLEASANT, BUT STATES STILL IN PAIN. WHAT WERE DOING ISNT WORKING WELL. PAIN RECTAL AT 11/14. TALKED WITH HER SOME. THIS SEEMED TO HELP SOME. H/R REG, NO MURMER NOTED. NO TELE. LUNGS CLEAR, RESP EASY, UNLABORED. ON R.A. BT X4 LKAST BM TODAY. SOFT. VOIDSFOLEY CATH. YELLOW FLUID DRAINING. RT FOOT WOUND AND DARK TOE NOTED. WRAPPED IN KERLEX. BED IN LOW POSITION, CALL LITE IN REACH, CALLS APPROP
--- NOTE | 2020-05-01 11:28 | NUR ---
FENTANYL PATCH PLACED RT SHOULDER
--- NOTE | 2020-05-01 17:49 | NUR ---
SPOKE TO DR GRANDA RE PAIN. DR MADE SEVERAL ADJUSTMENTS. PT STATES PAIN AND ANX. HAS BEEN MUCH IMPROVED TODAY. IS QUITE GRATEFUL. STATES FINALLY GOTTEN SOME SLEEP. DID SALOME WASH ORDERED TWICE TODAY. SPOKE TO GUY SCHAEFFER TODAY, SHE WANTS THIS CONTINUED 3X/DAY. NO NEW CONCERNS TODAY. WAS CALLING OUT AND MOANING THIS AM. RESTING AND NO CALLING OUT OR MOANING THIS AFT. BED IN LOW POSITION, C ALL LITE IN REACH, CALLS APPROP
--- NOTE | 2020-05-01 19:15 | NUR ---
ASSUMED CARE RECEIVED REPORT FROM NIKKI NEWTON. ASSUMED CARE OF PT. PT RESTING COMFORTABLY, NO S/S ACUTE DISTRESS NOTED, RESPS E/U. DENIES PAIN AT THIS TIME. CALL LIGHT, POSSESSIONS IN REACH, BED IN LOW POSITION, [facility].
[2020-05-02 04:38] LABS: Anion Gap 7 mmol/L (6-16); Blood Urea Nitrogen 10 mg/dL (8-24); Bun/Creatinine Ratio 14.1 (12.0-20.0); CO2, Blood 29 mmol/L (21-32); Calcium, Blood 9.1 mg/dL (8.5-10.1); Chloride, Blood 101 mmol/L (98-108); Creatinine, Blood 0.71 mg/dL (0.40-1.00); Glomerular Filtration Rate >60 (60-); Glucose, Blood 276 mg/dL (70-99); Potassium, Blood 3.5 mmol/L (3.5-5.5); Sodium, Blood 137 mmol/L (136-145)
--- NOTE | 2020-05-02 06:22 | NUR ---
SHIFT SUMMARY PT ASLEEP, NO S/S ACUTE DISTRESS NOTED. WAS MONITORED EVERY 1-2 HOURS WITH NEEDS MET. PAIN AND ANXIETY MANAGED WITH MEDS PER EMAR, PT SLEPT ON AND OFF T/O NIGHT. SALOME-ANAL FISTULA CLEANSED PER ORDERS, PT TOLERATED WELL. VS REVIEWED, WNL. ENCOURAGED PT TO MAINTAIN POSITION OF COMFORT. PT DENIES NEEDS AT THIS TIME, CALL LIGHT, POSSESSIONS IN REACH, BED IN LOW POSITION. WILL CONTINUE TO MONITOR AND PROVIDE CARE NEEDED UNTIL REPORT GIVEN TO DAY RN.
--- NOTE | 2020-05-02 15:08 | NUR ---
Spoke with Bedside RN Emily prior to Pt visit and discussed case. Spoke with Dr Williamson prior to Pt visit and discussed case. Pt may benefit from supportive visits from Palliative Care. Pt resting in bed with her eyes closed upon arrival. Pt wakes to gentle verbal stimuli. Pt reports a tolerable 4/10 pain at this time. Pt reports feeling tired and sleepy. Pt appears graugy and this RN ended visit to allow Pt to rest. Pt agreeable for visit at a later time. Palliative Care will remain available.
--- NOTE | 2020-05-02 18:18 | NUR ---
PT AO AND COOPERATIVE OF CARE. PT CONTINUE TO HAVE LOOSE STOOLS AND RECTAL PAIN TREATED PER EMAR. PT DID STATE HER PAIN HAS BEEN IMPROVED TODAY. PT IS A ONE PERSON TO BEDSIDE COMMODE. PT REST IN BED UNLESS NEEDING TO VOID. PT WILL CALL APPROPRIATELY AND CALL LIGHT IS WITHIN REACH WILL CONTINUE TO MONITOR.
--- NOTE | 2020-05-02 19:20 | NUR ---
ASSUMED CARE RECEIVED REPORT FROM NIKKI OSMAN. ASSUMED CARE OF PT. RESTING COMFORTABLY, NO S/S ACUTE DISTRESS NOTED, RESPS E/U. DENIES NEEDS AT THIS TIME. CALL LIGHT, POSSESSIONS IN REACH, BED IN LOW POSITION. WCTM.
[2020-05-03 04:26] LABS: BASOPHILS ABSOLUTE AUTO 0.02 K/mm3 (0.00-0.23); BASOPHILS PERCENT AUTO 0 % (0-2); EOSINOPHILS ABSOLUTE AUTO 0.11 K/mm3 (0.00-0.68); EOSINOPHILS PERCENT AUTO 1 % (0-6); Hemoglobin 10.9 g/dL (11.5-16.0); IMMATURE GRAN ABSOLUTE AUTO 0.03 K/mm3 (0.00-0.10); IMMATURE GRAN PERCENT AUTO 0 % (0-1); LYMPHOCYTES ABSOLUTE AUTO 1.06 K/mm3 (0.84-5.20); LYMPHOCYTES PERCENT AUTO 11 % (21-46); MONOCYTES PERCENT AUTO 9 % (4-13); Mean Corpuscular HGB 28.5 pg (26.0-34.0); Mean Corpuscular HGB Conc 32.1 g/dL (31.5-36.5); Mean Corpuscular Volume 89 fL (80-100); Mean Platelet Volume 9.4 fL (9.1-12.4); NEUTROPHILS ABSOLUTE AUTO 7.57 K/mm3 (1.96-9.15); NEUTROPHILS PERCENT AUTO 78 % (41-73); Platelet Count 357 K/mm3 (150-400); RDW Coefficient Variation 15.7 % (11.7-14.2); RDW Standard Deviation 50.7 fL (35.1-46.3); Red Blood Cell Count 3.83 M/mm3 (3.80-5.20); White Blood Cell Count 9.69 K/mm3 (4.00-11.30)
[2020-05-03 04:47] LABS: Alanine Aminotransfer (ALT/SGP 26 U/L (12-78); Albumin, Blood 2.2 g/dL (3.4-5.0); Albumin/Globulin Ratio 0.5 (0.8-1.8); Alk Phos 101 U/L (50-136); Anion Gap 6 mmol/L (6-16); Aspartate Aminotrans (AST/SGOT 15 U/L (12-37); Bilirubin, Total 0.4 mg/dL (0.1-1.0); Blood Urea Nitrogen 12 mg/dL (8-24); Bun/Creatinine Ratio 15.9 (12.0-20.0); CO2, Blood 28 mmol/L (21-32); Calcium, Blood 9.1 mg/dL (8.5-10.1); Chloride, Blood 103 mmol/L (98-108); Creatinine, Blood 0.76 mg/dL (0.40-1.00); Globulin, Blood 4.6 g/dL (2.2-4.0); Glomerular Filtration Rate >60 (60-); Glucose, Blood 290 mg/dL (70-99); Potassium, Blood 4.3 mmol/L (3.5-5.5); Sodium, Blood 137 mmol/L (136-145); Total Protein, Blood 6.8 g/dL (6.4-8.2)
--- NOTE | 2020-05-03 05:41 | NUR ---
SHIFT SUMMARY PT HAS BEEN SLEEPING ON AND OFF T/O NIGHT, NO S/S ACUTE DISTRESS NOTED. WAS MONITORED EVERY 1-2 HOURS WITH NEEDS MET. VS REVIEWED, O2 SATS STABLE ON RA, DENIES SOB, DYSPNEA. PAIN MANAGED WITH MEDS PER EMAR, WITH EFFECTIVE RELIEF; WAS ABLE TO SLEEP. PT REFUSED HYDROCORTISONE SUPPOSITORY, STATED "IT HURTS SO BAD, AND KEEPS HURTING WHEN IT'S PUT IN." SALOME-WASH COMPLETED ORDERED, BARRIER CREAM APPLIED TO BUTTOCKS C ATTENDS CHANGES. LOOSE BMS THIS SHIFT, BOWEL MEDS HELD. PT APPEARS ANXIOUS WHEN AWAKENED FOR ATTENDS CHANGES, PROVIDED REASSURANCE. PT ATTEMPTING TO GO BACK TO SLEEP AT THIS TIME. DENIES NEEDS. CALL LIGHT, POSSESSIONS IN REACH, BED IN LOW POSITION. WCTM, PROVIDE CARE UNTIL REPORT GIVEN TO ONCOMING RN.
--- NOTE | 2020-05-03 09:49 | NUR ---
BLOOD GLUCOSE THIS RN CALLED DR. ISSA AND LEFT A MESSAGE NOTIFYING ABOUT PT BLOOD GLUCOSE OF 355 AT 0900 TODAY 05/03/20. THIS RN GAVE MORNING MEDS TO PT. THIS RN WILL CONTINUE TO MONITOR PT.
--- NOTE | 2020-05-03 17:23 | NUR ---
PAIN LEVEL THIS RN CALLED DR. ISSA TO NOTIFY OF PT INCREASED PAIN LEVEL THIS ROSITA WITH LOW GRADE TEMP OF 99.1. ORDERS RECIEVED FOR TYLENOL PER EMAR. THIS RN WILL CONTINUE TO MONITOR PT STATUS.
--- NOTE | 2020-05-03 17:49 | NUR ---
SHIFT SUMMARY PT IS AOX4. PT C/O PAIN IN SALOME AREA 12/15 THIS ROSITA. PT DENIES SOB, N/V. PT HAD A PT EVALUATION TODAY WHO STATED SHE DID WELL. PLAN IS TO GET PAIN UNDER CONTROL. WOUND CARE DONE BY THIS RN ON RIGHT FOOT AND PICTURES UPDATED IN PT CHART. PT PAIN UNDER CONTROL THIS AM, BUT INCREASED THIS ROSITA. PT IS CURRENTLY IN BED, LOW POSITION, CALL LIGHT IN REACH.
--- NOTE | 2020-05-03 18:55 | NUR ---
ASSUMED CARE RECEIVED REPORT FROM NIKKI CARR ASSUMED CARE OF PT. RESTING COMFORTABLY, NO S/S ACUTE DISTRESS NOTED, RESPS E/U. DENIES NEEDS AT THIS TIME. CALL LIGHT, POSSESSIONS IN REACH, BED IN LOW POSITION. WCTM.
[2020-05-04 05:12] LABS: BASOPHILS ABSOLUTE AUTO 0.03 K/mm3 (0.00-0.23); BASOPHILS PERCENT AUTO 0 % (0-2); EOSINOPHILS ABSOLUTE AUTO 0.18 K/mm3 (0.00-0.68); EOSINOPHILS PERCENT AUTO 2 % (0-6); Hemoglobin 10.4 g/dL (11.5-16.0); IMMATURE GRAN ABSOLUTE AUTO 0.04 K/mm3 (0.00-0.10); IMMATURE GRAN PERCENT AUTO 0 % (0-1); LYMPHOCYTES ABSOLUTE AUTO 1.16 K/mm3 (0.84-5.20); LYMPHOCYTES PERCENT AUTO 12 % (21-46); MONOCYTES ABSOLUTE AUTO 0.94 K/mm3 (0.16-1.47); MONOCYTES PERCENT AUTO 10 % (4-13); Mean Corpuscular HGB 28.3 pg (26.0-34.0); Mean Corpuscular HGB Conc 31.5 g/dL (31.5-36.5); Mean Corpuscular Volume 90 fL (80-100); Mean Platelet Volume 9.5 fL (9.1-12.4); NEUTROPHILS ABSOLUTE AUTO 7.51 K/mm3 (1.96-9.15); NEUTROPHILS PERCENT AUTO 76 % (41-73); Platelet Count 408 K/mm3 (150-400); RDW Coefficient Variation 15.7 % (11.7-14.2); RDW Standard Deviation 51.5 fL (35.1-46.3); Red Blood Cell Count 3.68 M/mm3 (3.80-5.20); White Blood Cell Count 9.86 K/mm3 (4.00-11.30)
[2020-05-04 05:32] LABS: Alanine Aminotransfer (ALT/SGP 24 U/L (12-78); Albumin, Blood 2.2 g/dL (3.4-5.0); Albumin/Globulin Ratio 0.5 (0.8-1.8); Alk Phos 95 U/L (50-136); Anion Gap 6 mmol/L (6-16); Aspartate Aminotrans (AST/SGOT 13 U/L (12-37); Bilirubin, Total 0.4 mg/dL (0.1-1.0); Blood Urea Nitrogen 18 mg/dL (8-24); Bun/Creatinine Ratio 22.9 (12.0-20.0); CO2, Blood 27 mmol/L (21-32); Chloride, Blood 104 mmol/L (98-108); Creatinine, Blood 0.79 mg/dL (0.40-1.00); Globulin, Blood 4.4 g/dL (2.2-4.0); Glomerular Filtration Rate >60 (60-); Glucose, Blood 259 mg/dL (70-99); Magnesium, Blood 2.2 mg/dL (1.6-2.4); Potassium, Blood 4.2 mmol/L (3.5-5.5); Sodium, Blood 137 mmol/L (136-145); Total Protein, Blood 6.6 g/dL (6.4-8.2)
--- NOTE | 2020-05-04 07:15 | NUR ---
SHIFT SUMMARY PT RESTING AT THIS TIME, NO S/S ACUTE DISTRESS NOTED, WAS MONITORED EVERY 1-2 HOURS WITH NEEDS MET. DENIES NEEDS AT THIS TIME. PAIN MANAGED WITH SCHEDULED TORADOL, PT REPORTS PAIN ABOUT 6/10, ABLE TO SLEEP ONCE MEDICATION IS GIVEN. VS REVIEWED, WNL. SALOME-WASHES COMPLETED ORDERED; PT TOLERATED WELL. PT STATES HER BOTTOM FEELS BEST WHEN SHE DOESN'T MOVE, HYDROCORTISONE SUPPOSITORIES APPEAR TO BE HELPING WITH THE DISCOMFORT. DRSG TO RT FOOT C/D/I, NO DRAINAGE NOTED. PT DENIES PAIN OR NEEDS AT THIS TIME. CALL LIGHT, POSSESSIONS IN REACH, BED IN LOW POSITION. REPORT GIVEN TO NIKKI COBB.
--- NOTE | 2020-05-04 18:15 | NUR ---
SHIFT SUMMARY PT A&O UP TO BATHROOM WITH SBA AND FWW. SALOME WASHES COMPLETED ORDERED- PT ROSA WELL. PAIN MANAGED WELL WITH SCHEDULED TORADOL EXCEPT AFTER PT WORKED WITH PHYSICAL THERAPY. PT DIDN'T TOLERATE SITTING UP IN THE CHAIR VERY WELL, MEDICATED WITH TYLENOL AND ATIVAN AFTER GETTING BACK INTO BED. REPORTS "MOST COMFORTABLE WHEN LYING ON MY SIDE" NO ACUTE CHANGES THIS SHIFT. PLAN: SNF WHEN READY FOR DISCHARGE.
--- NOTE | 2020-05-05 04:01 | NUR ---
assumed care of PT 0230 am after report from Ra JORDAN.
[2020-05-05 05:03] LABS: BASOPHILS ABSOLUTE AUTO 0.02 K/mm3 (0.00-0.23); BASOPHILS PERCENT AUTO 0 % (0-2); EOSINOPHILS ABSOLUTE AUTO 0.19 K/mm3 (0.00-0.68); EOSINOPHILS PERCENT AUTO 3 % (0-6); Hematocrit 35.1 % (33.0-51.0); Hemoglobin 11.1 g/dL (11.5-16.0); IMMATURE GRAN ABSOLUTE AUTO 0.04 K/mm3 (0.00-0.10); IMMATURE GRAN PERCENT AUTO 1 % (0-1); LYMPHOCYTES ABSOLUTE AUTO 1.25 K/mm3 (0.84-5.20); LYMPHOCYTES PERCENT AUTO 17 % (21-46); MONOCYTES ABSOLUTE AUTO 0.81 K/mm3 (0.16-1.47); MONOCYTES PERCENT AUTO 11 % (4-13); Mean Corpuscular HGB 28.2 pg (26.0-34.0); Mean Corpuscular HGB Conc 31.6 g/dL (31.5-36.5); Mean Corpuscular Volume 89 fL (80-100); Mean Platelet Volume 9.5 fL (9.1-12.4); NEUTROPHILS ABSOLUTE AUTO 5.28 K/mm3 (1.96-9.15); NEUTROPHILS PERCENT AUTO 70 % (41-73); Platelet Count 452 K/mm3 (150-400); RDW Coefficient Variation 15.9 % (11.7-14.2); RDW Standard Deviation 52.2 fL (35.1-46.3); Red Blood Cell Count 3.93 M/mm3 (3.80-5.20); White Blood Cell Count 7.59 K/mm3 (4.00-11.30)
--- NOTE | 2020-05-05 05:09 | NUR ---
64 year old Female admitted 04/28/2020 with septic shoch was a recent ICU transfer. Her VSS & she has been up out of bed to bathroom to have liquid brown stool. She CO pain burning where liquid feces touches skin. Jalyn & perianal care with warm water bottle. She is up to bathroom with 1 assist & has unsteady gait. She is diabetic with blood glucoseds in the 200s. On short & long acting insulin. 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 Urine culture grew ecoli. Has scheduled toradol for pain PRN tylenol. Ativan given by Ra JORDAN at HS with helpful effect on anxiety.
[2020-05-05 05:24] LABS: Alanine Aminotransfer (ALT/SGP 25 U/L (12-78); Albumin, Blood 2.3 g/dL (3.4-5.0); Albumin/Globulin Ratio 0.5 (0.8-1.8); Alk Phos 99 U/L (50-136); Anion Gap 6 mmol/L (6-16); Aspartate Aminotrans (AST/SGOT 7 U/L (12-37); Bilirubin, Total 0.2 mg/dL (0.1-1.0); Blood Urea Nitrogen 18 mg/dL (8-24); Bun/Creatinine Ratio 21.3 (12.0-20.0); CO2, Blood 28 mmol/L (21-32); Calcium, Blood 9.1 mg/dL (8.5-10.1); Chloride, Blood 105 mmol/L (98-108); Creatinine, Blood 0.84 mg/dL (0.40-1.00); Globulin, Blood 4.6 g/dL (2.2-4.0); Glomerular Filtration Rate >60 (60-); Glucose, Blood 268 mg/dL (70-99); Potassium, Blood 4.1 mmol/L (3.5-5.5); Sodium, Blood 139 mmol/L (136-145); Total Protein, Blood 6.9 g/dL (6.4-8.2)
--- NOTE | 2020-05-05 10:42 | NUR ---
Brief joint visit with Dr Williamson. Pt's bed alarm sounding. Pt attempting to get out of bed to use BSC. Placed gate belt around Pt and assisted with transfering Pt to BSC. DEVELOPMENT MANAGER in to assist further. Discussed case with Dr Williamson. Pt appears to be improving clinicaly but pain is still an issue. Plan for conversation with colorectal surgery in [place]. Pt's pain tends to increse when sitting and standing. When laying on her side Pt's pain is managed. Palliative Care will remain available.
--- NOTE | 2020-05-05 17:43 | NUR ---
Initial spiritual care note: Mrs. Reyez was sleeping but awakened easily to voice. She appears quite weak/sleepy. She told me about her illness and the pain she has been expreiencing "for years." She is hopeful for a possible surgery soon and tells me she is looing forward to having a life without pain. She is deeply in love with ehr great grandchildren and is hoping to be with them more often when she is better. I provided prayer and spiritual peer counselor to good effect. Conference with palliative care RN. I will remain available.
--- NOTE | 2020-05-05 18:51 | NUR ---
SHIFT SUMMARY: NO ACUTE CHANGES TO REPORT THIS SHIFT. PT A&O; CALM AND COOPERATIVE WITH CARE. MEDICATED FOR PAIN PER EMAR. PT UP c 1-ASSIST. IV ABX CONTINUING. PHYSICAL THERAPY FOLLOWING. WCTM.
[2020-05-06 05:08] LABS: BASOPHILS ABSOLUTE AUTO 0.02 K/mm3 (0.00-0.23); BASOPHILS PERCENT AUTO 0 % (0-2); EOSINOPHILS ABSOLUTE AUTO 0.15 K/mm3 (0.00-0.68); EOSINOPHILS PERCENT AUTO 2 % (0-6); Hematocrit 35.3 % (33.0-51.0); Hemoglobin 11.2 g/dL (11.5-16.0); IMMATURE GRAN ABSOLUTE AUTO 0.04 K/mm3 (0.00-0.10); IMMATURE GRAN PERCENT AUTO 1 % (0-1); LYMPHOCYTES ABSOLUTE AUTO 1.19 K/mm3 (0.84-5.20); LYMPHOCYTES PERCENT AUTO 14 % (21-46); MONOCYTES ABSOLUTE AUTO 0.84 K/mm3 (0.16-1.47); MONOCYTES PERCENT AUTO 10 % (4-13); Mean Corpuscular HGB 28.4 pg (26.0-34.0); Mean Corpuscular HGB Conc 31.7 g/dL (31.5-36.5); Mean Corpuscular Volume 89 fL (80-100); Mean Platelet Volume 9.4 fL (9.1-12.4); NEUTROPHILS PERCENT AUTO 74 % (41-73); Platelet Count 444 K/mm3 (150-400); RDW Coefficient Variation 16.1 % (11.7-14.2); RDW Standard Deviation 53.1 fL (35.1-46.3); Red Blood Cell Count 3.95 M/mm3 (3.80-5.20); White Blood Cell Count 8.64 K/mm3 (4.00-11.30)
[2020-05-06 05:26] LABS: Alanine Aminotransfer (ALT/SGP 19 U/L (12-78); Albumin, Blood 2.3 g/dL (3.4-5.0); Albumin/Globulin Ratio 0.5 (0.8-1.8); Alk Phos 93 U/L (50-136); Anion Gap 9 mmol/L (6-16); Aspartate Aminotrans (AST/SGOT 5 U/L (12-37); Bilirubin, Total 0.3 mg/dL (0.1-1.0); Blood Urea Nitrogen 19 mg/dL (8-24); Bun/Creatinine Ratio 23.5 (12.0-20.0); CO2, Blood 25 mmol/L (21-32); Calcium, Blood 8.8 mg/dL (8.5-10.1); Chloride, Blood 106 mmol/L (98-108); Creatinine, Blood 0.81 mg/dL (0.40-1.00); Globulin, Blood 4.6 g/dL (2.2-4.0); Glomerular Filtration Rate >60 (60-); Glucose, Blood 249 mg/dL (70-99); Sodium, Blood 140 mmol/L (136-145); Total Protein, Blood 6.9 g/dL (6.4-8.2)
--- NOTE | 2020-05-06 09:40 | NUR ---
Pt moaning and restless upon arrival. Pt stating "let me ", "I hurt so bad". Offered gentle voice and reassurance. Bedside RN Montez offering Toradol for pain and received new order for Dilaudid. Will F/U with Pt for pain management and supportive visits.
--- NOTE | 2020-05-06 17:50 | NUR ---
PT SITTING IN BED WHILE EATING DINNER AND PAIN CURRENTLY UNDER CLT. PT HAS BEEN UP TO THR RESTROOM WITH STANDBY ASSIST, HOWEVER IS RELUCTANT TO URINATE OR HAVE A BM BECAUSE OF THE EXTREME PAIN SHE FEALS AFTER. PT IS BEING TREATED WITH EMAR MEDICATIONS AND IS IN GOOD SPIRITS PRESENTLY. SALOME CARE WAS PROVIDED EARLY IN THE SHIFT AND NEEDS TO BE COMPLETE AFTER EACH RETROOM USE. PT'S WOUND ON LEFT TOE REDRESSED WITH NO SIGNS INFECTION. ABT CURRENTLY RUNNING AND LINE WNL. STAFF WILL CONT. TO MONITOR.
--- NOTE | 2020-05-06 19:20 | NUR ---
ASSUMED CARE RECEIVED REPORT FROM NIKKI CALIX. ASSUMED CARE OF PT. PT RESTING COMFORTABLY, NO S/S ACUTE DISTRESS NOTED, REPORTS PAIN IS IMPROVING, RATES 10/15. RESPS E/U. PT DENIES NEEDS AT THIS TIME. CALL LIGHT, POSSESSIONS IN REACH, BED IN LOW POSITION. WCTM.
[2020-05-07 04:56] LABS: Hematocrit 33.3 % (33.0-51.0); Hemoglobin 10.7 g/dL (11.5-16.0); Mean Corpuscular HGB 28.5 pg (26.0-34.0); Mean Corpuscular HGB Conc 32.1 g/dL (31.5-36.5); Mean Corpuscular Volume 89 fL (80-100); Mean Platelet Volume 9.6 fL (9.1-12.4); Platelet Count 435 K/mm3 (150-400); RDW Coefficient Variation 15.9 % (11.7-14.2); RDW Standard Deviation 52.4 fL (35.1-46.3); Red Blood Cell Count 3.75 M/mm3 (3.80-5.20); White Blood Cell Count 10.66 K/mm3 (4.00-11.30)
--- NOTE | 2020-05-07 05:15 | NUR ---
SHIFT SUMMARY PT RESTING COMFORTABLY, NO S/S ACUTE DISTRESS NOTED. WAS MONITORED EVERY 1-2 HOURS WITH NEEDS MET. DENIES NEEDS AT THIS TIME. VS REVIEWED, WNL. PAIN MANAGED WITH MEDS PER EMAR, APPEARED TO PROVIDE ADEQUATE RELIEF. SALOME-WASH COMPLETED ORDERED, PT TOLERATED WELL. DENIES NEEDS AT THIS TIME. CALL LIGHT, POSSESSIONS IN REACH, BED IN LOW POSITION, WCTM UNTIL REPORT GIVEN TO ONCOMING RN.
[2020-05-07 05:17] LABS: Anion Gap 6 mmol/L (6-16); Blood Urea Nitrogen 18 mg/dL (8-24); Bun/Creatinine Ratio 22.8 (12.0-20.0); CO2, Blood 26 mmol/L (21-32); Calcium, Blood 8.5 mg/dL (8.5-10.1); Chloride, Blood 105 mmol/L (98-108); Creatinine, Blood 0.79 mg/dL (0.40-1.00); Glomerular Filtration Rate >60 (60-); Glucose, Blood 295 mg/dL (70-99); Potassium, Blood 4.2 mmol/L (3.5-5.5); Sodium, Blood 137 mmol/L (136-145)
--- NOTE | 2020-05-07 18:28 | NUR ---
SHIFT SUMMARY: NO ACUTE EVENTS. WAS ABLE TO GET INTO SHOWER TODAY, R FOOT COVERED. HAD 2 BM'S, LOOSE. DRESSING CHANGED ON R FOOT; WOUND IS CLEAN, NO S/S OF INFECTION, SMALL SEROSANG DRAINAGE. GOOD APPETITE. PAIN IS ADEQUATELY CONTROLLED WITH SCHEDULED TORADOL AND PRN DILAUDID. GETTING UP TO BR WITH SBA.
--- NOTE | 2020-05-07 19:00 | NUR ---
ASSUMED CARE RECEIVED REPORT FROM NIKKI WYNN. ASSUMED CARE OF PT. PT RESTING COMFORTABLY, NO S/S ACUTE DISTRESS NOTED, RESPS E/U. DENIES NEEDS AT THIS TIME. CALL LIGHT, POSSESSIONS IN REACH, TM.
--- NOTE | 2020-05-08 03:41 | NUR ---
SHIFT SUMMARY PT ASLEEP, NO ACUTE NEEDS ASSESSED AT THIS TIME. HAS BEEN MONITORED EVERY 1-2 HOURS WITH NEEDS MET. VS REVIEWED, WNL. CBGS STABILIZING. PAIN APPEARS TO BE CONTROLLED WITH TOPICAL LIDOCAINE TO URO-RECTAL FISTULA, WELL SCHEDULED TORADOL. [place] [facility] [place]. CALL LIGHT, POSSESSIONS IN REACH, BED IN LOW POSITION. CONTINUE TO MONITOR UNTIL REPORT GIVEN TO DAY RN.
--- NOTE | 2020-05-08 18:07 | NUR ---
SHIFT SUMMARY PT AWAKE DURING SHIFT REPORT THIS AM. DENIED NEEDS AT THAT TIME. PT LATER UP TO BSC TO VOID, PASSING STOOL AND URINE ON FLOOR AND IN BSC. PT AND LINENS CLEANED. PT ASSISTED BACK INTO BED. PT WITH A VERY PAINFUL COLO-RECTAL OR RECTO-VAGINAL FISTULA. PT BEING TX'D WITH IV ABX AND PAIN MANAGEMENT. PT HAVING MORE PAIN THIS AM THAN YESTERDAY, SHE STATED EARLIER. PT FEELING BETTER THIS AFTERNOON AND EVENING. DRSG TO R FOOT CHANGED TODAY. WOUND CLEANED PER ORDERS AND NEW DRSG'S PLACED ON TOE AMPUTATION SITE. PT WITH NECROTIC TOE NEXT TO AMPUTATION WELL. PT WITH IDDM. SS COVERAGE CHANGED TODAY; SEE EMAR. PT IS A&O AND NORMALLY LIVES ALONE. PT WAITING FOR CARE MANAGEMENT TO DETERMINE PLAN OF CARE FOR D/C. CALL LT IN REACH. ABLE TO MAKE NEEDS KNOWN.
[2020-05-09 06:02] LABS: BASOPHILS ABSOLUTE AUTO 0.03 K/mm3 (0.00-0.23); BASOPHILS PERCENT AUTO 0 % (0-2); EOSINOPHILS PERCENT AUTO 2 % (0-6); Hematocrit 31.5 % (33.0-51.0); Hemoglobin 9.8 g/dL (11.5-16.0); IMMATURE GRAN ABSOLUTE AUTO 0.05 K/mm3 (0.00-0.10); IMMATURE GRAN PERCENT AUTO 1 % (0-1); LYMPHOCYTES ABSOLUTE AUTO 1.14 K/mm3 (0.84-5.20); LYMPHOCYTES PERCENT AUTO 12 % (21-46); MONOCYTES ABSOLUTE AUTO 0.84 K/mm3 (0.16-1.47); MONOCYTES PERCENT AUTO 9 % (4-13); Mean Corpuscular HGB 27.8 pg (26.0-34.0); Mean Corpuscular HGB Conc 31.1 g/dL (31.5-36.5); Mean Corpuscular Volume 89 fL (80-100); Mean Platelet Volume 9.8 fL (9.1-12.4); NEUTROPHILS ABSOLUTE AUTO 7.07 K/mm3 (1.96-9.15); NEUTROPHILS PERCENT AUTO 76 % (41-73); Platelet Count 381 K/mm3 (150-400); RDW Coefficient Variation 16.5 % (11.7-14.2); RDW Standard Deviation 54.1 fL (35.1-46.3); Red Blood Cell Count 3.53 M/mm3 (3.80-5.20); White Blood Cell Count 9.33 K/mm3 (4.00-11.30)
[2020-05-09 06:27] LABS: Alanine Aminotransfer (ALT/SGP 16 U/L (12-78); Albumin, Blood 2.1 g/dL (3.4-5.0); Albumin/Globulin Ratio 0.5 (0.8-1.8); Alk Phos 77 U/L (50-136); Anion Gap 7 mmol/L (6-16); Aspartate Aminotrans (AST/SGOT 9 U/L (12-37); Bilirubin, Total 0.4 mg/dL (0.1-1.0); Blood Urea Nitrogen 18 mg/dL (8-24); Bun/Creatinine Ratio 22.3 (12.0-20.0); CO2, Blood 25 mmol/L (21-32); Calcium, Blood 8.5 mg/dL (8.5-10.1); Chloride, Blood 106 mmol/L (98-108); Creatinine, Blood 0.81 mg/dL (0.40-1.00); Globulin, Blood 4.2 g/dL (2.2-4.0); Glomerular Filtration Rate >60 (60-); Glucose, Blood 299 mg/dL (70-99); Potassium, Blood 4.3 mmol/L (3.5-5.5); Sodium, Blood 138 mmol/L (136-145); Total Protein, Blood 6.3 g/dL (6.4-8.2)
--- NOTE | 2020-05-09 06:50 | NUR ---
SHIFT SUMMARY PT IS A 64 Y/O FEMALE, ADMITTED FOR SEPTIC SHOCK R/T A RECTAL-VAGINA FISTULA. SHE IS A&O X 4, 1PA TO THE [facility] [place]. PT WAS MEDICATED FOR PAIN WITH SCHEDULED TORADOL, WHICH CONTROLLED HER PAIN WELL THROUGH THE NIGHT. NO C/O NAUSEA OR SOB. VITAL SIGNS STABLE. PT SLEPT WELL THROUGH THE NIGHT. NO ACUTE CHANGES IN PT CONDITION NOTED. WILL CONTINUE TO MONITOR AND TREAT PER EMAR UNTIL HAND OFF TO DAY SHIFT RN.
--- NOTE | 2020-05-09 16:06 | NUR ---
SHIFT SUMMARY PATIENT MEDICATED X4 FOR PAIN THIS SHIFT. PATIENT DENIES NAUSEA AND SHORTNESS OF BREATH. PATIENT WORKED WITH PT TODAY, WALKED IN HALLWAY. UP SBA W/FWW TO BATHROOM. DR. SEYMOUR CONSULTED, NEW ORDERS TO HOLD PLAVIX AND CLEAR LIQUID DIET. PATIENT WILL HAVE ENEMAS IN MORNING TO PREPARE FOR RECTAL EXAM TOMORROW.
[2020-05-10 00:43] LABS: Influenza A, PCR Negative (NEGATIVE); Influenza B, PCR Negative (NEGATIVE); Resp Syncytial Virus, PCR Negative (NEGATIVE); SARS-Cov-2 (COVID-19) PCR, MMC Negative (NEGATIVE)
--- NOTE | 2020-05-10 07:35 | NUR ---
SHIFT SUMMARY PT IS A 64 Y/O FEMALE, ADMITTED FOR SEPTIC SHOCK R/T A RECTAL-VAGINA FISTULA. PT IS A&O X 3, 1PA TO [facility] [place]. PT REPORTED RECTAL PAIN THROUGH THE NIGHT WHEN AWAKE, AND WAS MEDICATED WITH SCHEDULED TORADOL AND ONE DOSE OF PRN DILAUDID. NO C/O NAUSEA OR SOB. VITAL SIGNS STABLE. NO ACUTE CHANGES IN PT CONDITION NOTED. REPORT GIVEN TO ONCOMING RN.
--- NOTE | 2020-05-10 10:49 | NUR ---
05/10/20 1049 Sally Vivar History, Chart, Medications and Allergies reviewed before start of procedure. MODERATE SEATION. MONITOR INTACT WITH CONTINUOUS PULSE OXIMETRY AND INTERMITTENT BP.3-LEAD EKG REVIEWED WITH PHYSICIAN PRIOR TO START OF PROCEDURE.O2 VIA N/C INTACT THROUGHOUT SEDATION/PROCEDURE.
--- NOTE | 2020-05-10 16:40 | NUR ---
SHIFT SUMMARY PATIENT MEDICATED SEVERAL TIMES FOR PAIN THIS SHIFT. DENIES NAUSEA AND SHORTNESS OF BREATH. FLEET ENEMA X3 GIVEN THIS AM FOR PROCDURE PREP. FLEX SIG ATTEMPTED THIS AM BUT ABORTED DUE TO STOOL IMPAIRING VIEW. PATIENT RETURNED TO CLEAR LIQUID DIET. GOLYTLY PREP TO START TOMORROW AM FOR COLONOSCOPY IN AFTERNOON. HOLD BLOOD THINNERS. PATIENT UP SBA W/FWW TO BR. NAPPING MOST OF AFTERNOON.
--- NOTE | 2020-05-10 18:12 | NUR ---
pt sleeping after procedure will review prn meds for improved pain control.
[2020-05-11 05:24] LABS: BASOPHILS ABSOLUTE AUTO 0.03 K/mm3 (0.00-0.23); BASOPHILS PERCENT AUTO 0 % (0-2); EOSINOPHILS ABSOLUTE AUTO 0.12 K/mm3 (0.00-0.68); EOSINOPHILS PERCENT AUTO 1 % (0-6); Hematocrit 32.3 % (33.0-51.0); Hemoglobin 10.2 g/dL (11.5-16.0); IMMATURE GRAN ABSOLUTE AUTO 0.04 K/mm3 (0.00-0.10); IMMATURE GRAN PERCENT AUTO 0 % (0-1); LYMPHOCYTES ABSOLUTE AUTO 1.12 K/mm3 (0.84-5.20); LYMPHOCYTES PERCENT AUTO 13 % (21-46); MONOCYTES ABSOLUTE AUTO 0.82 K/mm3 (0.16-1.47); MONOCYTES PERCENT AUTO 9 % (4-13); Mean Corpuscular HGB Conc 31.6 g/dL (31.5-36.5); Mean Corpuscular Volume 89 fL (80-100); Mean Platelet Volume 9.6 fL (9.1-12.4); NEUTROPHILS ABSOLUTE AUTO 6.84 K/mm3 (1.96-9.15); NEUTROPHILS PERCENT AUTO 76 % (41-73); Platelet Count 360 K/mm3 (150-400); RDW Coefficient Variation 16.7 % (11.7-14.2); Red Blood Cell Count 3.64 M/mm3 (3.80-5.20); White Blood Cell Count 8.97 K/mm3 (4.00-11.30)
[2020-05-11 06:02] LABS: Alanine Aminotransfer (ALT/SGP 12 U/L (12-78); Albumin, Blood 2.2 g/dL (3.4-5.0); Albumin/Globulin Ratio 0.5 (0.8-1.8); Alk Phos 82 U/L (50-136); Anion Gap 6 mmol/L (6-16); Aspartate Aminotrans (AST/SGOT 10 U/L (12-37); Bilirubin, Total 0.3 mg/dL (0.1-1.0); Blood Urea Nitrogen 7 mg/dL (8-24); Bun/Creatinine Ratio 10.6 (12.0-20.0); CO2, Blood 25 mmol/L (21-32); Calcium, Blood 8.3 mg/dL (8.5-10.1); Chloride, Blood 108 mmol/L (98-108); Creatinine, Blood 0.66 mg/dL (0.40-1.00); Globulin, Blood 4.2 g/dL (2.2-4.0); Glomerular Filtration Rate >60 (60-); Glucose, Blood 211 mg/dL (70-99); Potassium, Blood 3.7 mmol/L (3.5-5.5); Sodium, Blood 139 mmol/L (136-145); Total Protein, Blood 6.4 g/dL (6.4-8.2)
--- NOTE | 2020-05-11 06:30 | NUR ---
SHIFT SUMMARY PT IS A 64 Y/O FEMALE, ADMITTED FOR SEPTIC SHOCK R/T A COLO-VAGINAL FISTULA. SHE IS A&O X 3, 1PA TO [facility] [place]. PT REPORTS CONSISTENT PAIN IN HER RECTUM AT A 6-7/10, CONTROLLED WITH SCHEDULED TORADOL AND PRN DILAUDID. VITAL SIGNS STABLE. NO C/O NAUSEA OR SOB. NO ACUTE CHANGES IN PT CONDITION NOTED DURING THE NIGHT. WILL CONTINUE TO MONITOR AND TREAT PER EMAR UNTIL HAND OFF TO DAY SHIFT RN.
--- NOTE | 2020-05-11 12:20 | NUR ---
CALLED DR COLON- PT HUMALOG HELD THIS MORNING PT IS NPO PRE PROCEDURE, DR AWARE. PT DID DRINK ENSURE CLEAR THAT HAS A LOT OF SUGAR AND HAS BEEN DRINKING GOLYTELY SINCE. PER DR COLON OK TO GIVE 1/2 OF THE SS DOSE OF HUMALOG WHILE THE PT IS NPO.
--- NOTE | 2020-05-11 18:12 | NUR ---
PT INTO SDS VIA [facility] FROM [facility]. History, Chart, Medications and Allergies reviewed before start of procedure. Lungs clear T/O to Auscultation. Patient confirms NPO status and agrees with scheduled surgery. Pre-Op teaching done. Pt verbalizes understanding.
--- NOTE | 2020-05-11 18:58 | NUR ---
05/11/20 1858 Sally Vivar History, Chart, Medications and Allergies reviewed before start of procedure.MONITOR INTACT WITH CONTINUOUS PULSE OXIMETRY AND INTERMITTENT BP.3-LEAD EKG REVIEWED WITH PHYSICIAN PRIOR TO START OF PROCEDURE.O2 VIA N/C INTACT THROUGHOUT SEDATION/PROCEDURE.
--- NOTE | 2020-05-11 19:53 | NUR ---
SHIFT SUMMARY- PT ALERT AND ORIENTED. 1P ASSIST WITH TRANSFERS TO BSC. PAIN MANAGEMENT HAS BEEN DIFFICULT BUT PT PAIN SEEMS TO BE WELL MANAGED AT THIS TIME. PT COMPLETED 3/4 GALLON OF GOLYTELY TODAY PRIOR TO COLONOSCOPY PASSING CLEAR STOOL WITH SOME SEDIMENT. PT WENT FOR PROCEDURE AND IT WAS DISCOVERED THE PT IS PASSING SOLID STOOL THROUGH HER FISTULA AND THERE IS HARD STOOL IN THE RECTUM. THE COLONOSCOPY WAS ABORTED. PT PLACED ON A CLEAR LIQUID DIET UPON RETURNING TO MEDICAL FLOOR, FULL LIQUID FOR TOMORROW MORNING. PLAN IS FOR COBRA TRANSFER TO [place] FOR RECONSTRUCTIVE SURGERY, PER REPORT FROM AUTOMATION DESIGN ENGINEER. PASSED ALL ON IN BEDSIDE REPORT TO NIGHT RN ROBEL. NO S&S OF DISTRESS NOTED AT THE TIME OF SHIFT CHANGE.
--- NOTE | 2020-05-12 06:21 | NUR ---
64 year old Female with hx rectal cancer with chemo given to treat continues to have acute pain & anxiety related to vag/rectal fistula. PT has several med formed firm stools incontient of bowel & bladder. On sched. toradol & flagyl iv. PT has bg 150s at HS had only sips of water not taking orals post colonoscopy. 50 units semglee insulin held. PT has some anxiety loud moaning relieved by good pain control & ativan oral x 1. DR Palemr trying to facilitate COBRA transfer to surgically correct large unhealing fistula.
--- NOTE | 2020-05-12 09:35 | NUR ---
Pt resting in bed upon arrival. Pt reports pain level of 7/10. Pt states just recently receiving pain medication. She reports pain is managed with current regimen. Discussed the potential plan for transfer with Pt in agreement. Spoke with Bedside RN Carlos and discussed case. Palliative Care will remain available.
--- NOTE | 2020-05-12 17:25 | NUR ---
SHIFT SUMMARY PT AOX4; CALLS APPROPRIATELY. PT VERY PAINFUL ON HER SALOME AREA; MEDICATED PER EMAR. TOPICAL LIDOCAINE APPLIED THIS AFTERNOON. PT HAD MULTIPLE LOOSE BM TODAY. PT IS 1P ASSIST TO BSC; PT ALSO HAD A SHOWER TODAY. DRESSING ON PT R TOES CHANGED TODAY. NO OTHER ISSUES OR CONCERNS DURING THIS SHIFT. BED IS IN THE LOWEST POSITION AND CALL LIGHT WITHIN REACH.
--- NOTE | 2020-05-13 07:23 | NUR ---
PT with vag rectal fistula with much improved control of pain & nausea. Medicated with toradol IV Q 6 hrs & 4 mg oral dilaudid given x 1. Denies need for antianxiety rx. Stool brown pasty out recal & vaginal voids oit urethera.
[2020-05-13 11:30] LABS: Hematocrit 29.8 % (33.0-51.0); Hemoglobin 9.2 g/dL (11.5-16.0); Mean Corpuscular HGB 27.5 pg (26.0-34.0); Mean Corpuscular HGB Conc 30.9 g/dL (31.5-36.5); Mean Corpuscular Volume 89 fL (80-100); Mean Platelet Volume 9.5 fL (9.1-12.4); Platelet Count 398 K/mm3 (150-400); RDW Coefficient Variation 17.2 % (11.7-14.2); RDW Standard Deviation 55.6 fL (35.1-46.3); Red Blood Cell Count 3.35 M/mm3 (3.80-5.20); White Blood Cell Count 7.95 K/mm3 (4.00-11.30)
[2020-05-13 11:46] LABS: Anion Gap 6 mmol/L (6-16); Blood Urea Nitrogen 7 mg/dL (8-24); CO2, Blood 29 mmol/L (21-32); Chloride, Blood 105 mmol/L (98-108); Creatinine, Blood 0.64 mg/dL (0.40-1.00); Glomerular Filtration Rate >60 (60-); Glucose, Blood 292 mg/dL (70-99); Potassium, Blood 3.5 mmol/L (3.5-5.5); Sodium, Blood 140 mmol/L (136-145)
--- NOTE | 2020-05-13 17:03 | NUR ---
Pt resting in bed and reports 7/10 pain. Pt reports better pain management but pain currently increasing and states she thinks it is from working with PT. Discussed plan for diverting colostomy with Pt in agreement. Pt reports less anxiety due to plans being developed. Continued therapeutic listening. Pt expresses appreciation of visit and reports no other concerns at this time. Spoke with bedside RN Siena, discussed case, and relayed Pt's pain. Palliative Care will remain available.
--- NOTE | 2020-05-13 18:15 | NUR ---
SHIFT SUMMARY PT AOX4; CALLS APPROPRIATELY. THIS MORNING PT STATED SHE IS HAVING BETTER PAIN CONTROL; HOWEVER THIS LATE AFTERNOON SHE WAS IN PAIN 8/10 EVEN AFTER RECEIVING DILAUDID PO 4MG Q4; SO THIS NURSE HAD TO MEDICATE THE PT DILAUDID IV ONCE THIS SHIFT. DR LOCK CAME BY AND DISCUSSED THE PLAN FOR THIS PT. DC'D THE PLAVIX AND PLETAL FOR 2 DAYS PRIOR PROCEDURE- WHICH IS DIVERSION COLOSTOMY. PT AGREED TO THIS PROCEDURE. VSS. BED IS IN THE LOWEST POSITION AND CALL LIGHT WITHIN REACH.
--- NOTE | 2020-05-14 06:49 | NUR ---
PT has more pain off toradol but able to take 1 4 mg oral dilaudid 2 times in 12 hr shift & sleep. She has deep pains while awake from vag rectal fistula 7 she expresses desire for colostomy placement per DR Hassan per PT report. Plavix & plentil being held in anticipation of surgery.
--- NOTE | 2020-05-14 13:52 | NUR ---
DR MAGANA IN TO DISCUSS COLOSTOMY SURG w PT, SHE AGREES TO PROCEDURE. DR HERNANDEZ PT BE GIVEN REMAINDER OF GOLYTELY THAT IS PRESENT IN ROOM APPROX 1/3 OF JUG ORDER CLEAR LIQUID DIET
--- NOTE | 2020-05-14 19:23 | NUR ---
summary PT IS A/O X4, GENERALLY PLEASANT HOWEVER ONGOING ABD/GROIN PAIN T/O DAY R/T RECTO/VAGINAL FISTULA. HAVE GIVEN PO DILAUDID 6MG & IV DILAUDID 0.5MG FOR PAIN CONTROL/RELEIF. HAVE GIVEN TOPICAL LIDOCAINE VAGINAL AREA & CHLORHEXIDINE LAVAGE. SHE HAS INTERMITTANT INCONTINENCE LIQUID STOOL FROM RECTUM & VAGINA, FREQUENT ATTENDS CHANGES. DR MAGANA IN CONSULT, EXPLAIN NEED FOR COLOSTOMY SURGERY. PT AGREES, DR STATE SURG WILL BE TOMORROW, CL DIET, NPO AFTER MN. ORDER TO COMPLETE REMAINDER OF GOLYTELY THAT IS @ BEDSIDE FROM PREVIOUS DAYS COLONOSCOPY PREP. IV ANTIBX CONTINUE ORDERED. VSS.
--- NOTE | 2020-05-15 04:22 | NUR ---
PATIENT IS ALERT AND ORIENTED. HAS EXTREME PAIN AT ALL TIMES. EARLY THIS MORNING WAS HAVING HORRIFIC PAIN SO WAS GIVEN DOSE OF IV DILAUDID TO ACT ON THE PAIN QUICKLY AND SOME PO DILAUDID TO REMAIN LONGER IN HER SYSTEM. PATIENT CONTINUES TO HAVE FREQUENT LOOSE STOOLS & URINATION WHICH IS BREAKING DOWN HER SKIN. PATIENT NPO SINCE MIDNIGHT IN PREP FOR COLOSTOMY PLACEMENT LATER TODAY. PATIENT IS NOW ASLEEP IN BED. CALL LIGHT WITHIN REACH. WILL CONTINUE TO MONITOR AND PROVIDE CARE NEEDED.
[2020-05-15 04:57] LABS: BASOPHILS ABSOLUTE AUTO 0.02 K/mm3 (0.00-0.23); BASOPHILS PERCENT AUTO 0 % (0-2); EOSINOPHILS ABSOLUTE AUTO 0.16 K/mm3 (0.00-0.68); EOSINOPHILS PERCENT AUTO 2 % (0-6); Hematocrit 32.4 % (33.0-51.0); IMMATURE GRAN ABSOLUTE AUTO 0.03 K/mm3 (0.00-0.10); IMMATURE GRAN PERCENT AUTO 0 % (0-1); LYMPHOCYTES PERCENT AUTO 16 % (21-46); MONOCYTES ABSOLUTE AUTO 0.75 K/mm3 (0.16-1.47); MONOCYTES PERCENT AUTO 11 % (4-13); Mean Corpuscular HGB 27.6 pg (26.0-34.0); Mean Corpuscular HGB Conc 30.9 g/dL (31.5-36.5); Mean Corpuscular Volume 90 fL (80-100); Mean Platelet Volume 9.2 fL (9.1-12.4); NEUTROPHILS ABSOLUTE AUTO 4.98 K/mm3 (1.96-9.15); NEUTROPHILS PERCENT AUTO 71 % (41-73); Platelet Count 398 K/mm3 (150-400); RDW Coefficient Variation 17.5 % (11.7-14.2); RDW Standard Deviation 57.2 fL (35.1-46.3); Red Blood Cell Count 3.62 M/mm3 (3.80-5.20); White Blood Cell Count 7.04 K/mm3 (4.00-11.30)
[2020-05-15 05:15] LABS: Anion Gap 5 mmol/L (6-16); Blood Urea Nitrogen 4 mg/dL (8-24); Bun/Creatinine Ratio 6.7 (12.0-20.0); CO2, Blood 29 mmol/L (21-32); Calcium, Blood 8.3 mg/dL (8.5-10.1); Chloride, Blood 106 mmol/L (98-108); Glomerular Filtration Rate >60 (60-); Glucose, Blood 186 mg/dL (70-99); Potassium, Blood 3.7 mmol/L (3.5-5.5); Sodium, Blood 140 mmol/L (136-145)
--- NOTE | 2020-05-15 10:19 | NUR ---
PATIENT WAS BROUGHT TO D/S FOR HER PROCEDURE. Patient up to Ambulate independently. Gait steady. Surgical site prepped with 2% Chlorhexidine cloth wipe. History, Chart, Medications and Allergies reviewed before start of procedure.Lungs clear T/O to Auscultation. Patient confirms NPO status and agrees with scheduled surgery. Pre-Op teaching done. Pt verbalizes understanding.
--- NOTE | 2020-05-15 11:41 | NUR ---
AM ASSESSMENT PT A/O X4, PLEASANT AFFECT. SHE HAS BEEN NPO SINCE MN EXCEPT MEDS. STATE CONTINUING LOWER ABD/GROIN PAIN. STATE HOPEFUL FOR RELIEF FOLLOWING COLOSTOMY SURG TODAY w DR MAGANA. PRNS DILAUDID GIVEN FOR PAIN CONTROL. SHE WS UP TO BR w FWW, SBA. LOOSE LIQUID STOOL w URINE VOID. WOUND CARE TO R FOOT PROVIDED. PATTERNMAKER METAL UP TO TAKE PT OUT FOR SURG APPROX 1000.
--- NOTE | 2020-05-15 12:38 | NUR ---
PT WILL GO TO SURG 228 FOLLOWING PROCEDURE, REPORT CALLED TO FARHAD Scott DELIVERY TECH.
--- NOTE | 2020-05-15 14:05 | NUR ---
PT ARRIVED TO ROOM 228 FROM PACU S/P LAP COLOSTOMY PT HAS DERMABOND SITES C/D/I PT OSTOMY IS ALSO PINK WITH NO SERO/SANG DRAINAGE IN BAG AT THIS TIME ABSENT BT'S X4 PT MOANING REPORTS PAIN 8/10 BUT DROWSY
--- NOTE | 2020-05-16 03:42 | NUR ---
SHIFT SUMMARY: POD 1 RECTOVAGINAL FISTULA/ LAP COLOSTOMY PATIENT WHEN AWAKE IS ALERT AND ORIENTED X4. SHE HAS BEEN SLEEPING MAJORITY OF THE SHIFT BUT IS EASILY AROUSABLE. SHE WAS GIVEN A DOSE OF IV DILAUDID FOR PAIN RELIEF/CONTROL. PATIENT REPORTS COLOSTOMY "MAKING NOISES" AND APPEARS TO BE PUTTING OUT BROWN SOFT STOOL. STOMA IS PINK WITH BROWN OUTPUT. HER LAP SITES ARE OPEN TO AIR WITH WOUND GLUE AND ARE C/D/I. SHE IS ON A CLEAR LIQUID DIET TO SLOWLY INTRODUCE FOODS. SHE TOLERATED HER JELLO BEFORE BED WELL. SHE IS CURRENTLY SNORING LAYING IN BED. CALL LIGHT WITHIN REACH. VITALS ARE WNL AND ON RA. THE PLAN IS TO CONTINUE IV ABX AND FLUIDS ORDERED AND INTRODUCE PATIENT ON OSTOMY MANAGEMENT.
--- NOTE | 2020-05-16 16:32 | NUR ---
Shift summary Ostomy putting out scant amount liquid stool. Patient controlled today with PO Dilaudid. IV Dilaudid given once this shift for breakthrough pain. VSS. lap sites CDI. Mahoney patient draining yellow urine. Patient worked with PT today. Call light within patient reach.
[2020-05-17 03:55] LABS: Hematocrit 36.4 % (33.0-51.0); Hemoglobin 11.2 g/dL (11.5-16.0); Mean Corpuscular HGB 27.4 pg (26.0-34.0); Mean Corpuscular HGB Conc 30.8 g/dL (31.5-36.5); Mean Corpuscular Volume 89 fL (80-100); Mean Platelet Volume 9.2 fL (9.1-12.4); Platelet Count 370 K/mm3 (150-400); RDW Coefficient Variation 17.9 % (11.7-14.2); RDW Standard Deviation 56.7 fL (35.1-46.3); Red Blood Cell Count 4.09 M/mm3 (3.80-5.20); White Blood Cell Count 10.77 K/mm3 (4.00-11.30)
[2020-05-17 04:16] LABS: Anion Gap 5 mmol/L (6-16); Blood Urea Nitrogen 6 mg/dL (8-24); Bun/Creatinine Ratio 10.2 (12.0-20.0); CO2, Blood 30 mmol/L (21-32); Chloride, Blood 107 mmol/L (98-108); Creatinine, Blood 0.59 mg/dL (0.40-1.00); Glomerular Filtration Rate >60 (60-); Glucose, Blood 194 mg/dL (70-99); Potassium, Blood 3.4 mmol/L (3.5-5.5); Sodium, Blood 142 mmol/L (136-145)
--- NOTE | 2020-05-17 05:18 | NUR ---
POD 2 S/P COLECTOMY+COLOSTOMY. PT VSS T/O NIGHT, LUNGS CLEAR. INCISIONS CDI. COLOSTOMY W/ONLY VERY SCANT SS DRNG; NO FLATUS. PT DID HAVE 1 SMALL SOFT BM PER RECTUM THIS SHIFT. PT ROSA CL PO, DID HAVE 1 EPISODE OF [place] THIS AM, NO EMESIS. PAIN MGD W/IV AND PO PAIN MEDS, PT C/O GAS PAINS IN ABD, NO FLAUTS YET. PT REPOSITIONS SELF IN BED, ASSISTED PRN T/O NIGHT, R/T PAIN W/MVMT.
--- NOTE | 2020-05-17 09:55 | NUR ---
ASSUMED CARE OF PT FROM SHIRLEY Lugo RN.
--- NOTE | 2020-05-17 17:11 | NUR ---
SUMMARY NO ACUTE CHANGES THIS SHIFT. PT SAT UP IN CHAIR THIS AM. SCANT AMOUNT SS OUTPUT FROM OSTOMY. PT C/O OF HEARBURN; PROVIDED MILK WHICH PT REPORTED GREATLY IMPROVED SYMPTOMS. PT PLEASANT AND COOPERATIVE. CALL LIGHT IN REACH.
[2020-05-18 05:17] LABS: Hematocrit 33.6 % (33.0-51.0); Hemoglobin 10.3 g/dL (11.5-16.0); Mean Corpuscular HGB 27.7 pg (26.0-34.0); Mean Corpuscular HGB Conc 30.7 g/dL (31.5-36.5); Mean Corpuscular Volume 90 fL (80-100); Mean Platelet Volume 9.1 fL (9.1-12.4); Platelet Count 285 K/mm3 (150-400); RDW Coefficient Variation 18.1 % (11.7-14.2); RDW Standard Deviation 58.9 fL (35.1-46.3); Red Blood Cell Count 3.72 M/mm3 (3.80-5.20); White Blood Cell Count 8.39 K/mm3 (4.00-11.30)
[2020-05-18 05:39] LABS: Anion Gap 8 mmol/L (6-16); Blood Urea Nitrogen 6 mg/dL (8-24); Bun/Creatinine Ratio 9.3 (12.0-20.0); CO2, Blood 28 mmol/L (21-32); Calcium, Blood 8.1 mg/dL (8.5-10.1); Chloride, Blood 106 mmol/L (98-108); Creatinine, Blood 0.64 mg/dL (0.40-1.00); Glomerular Filtration Rate >60 (60-); Glucose, Blood 112 mg/dL (70-99); Potassium, Blood 3.3 mmol/L (3.5-5.5); Sodium, Blood 142 mmol/L (136-145)
--- NOTE | 2020-05-18 07:41 | NUR ---
POD 3 S/P COLECTOMY+COLOSTOMY. PT VSS T/O NIGHT. INCISIONS CDI. BT HYPO, PT C/O GAS PAINS, NO OUTPUT FROM OSTOMY. PT CONT TO PASS SOFT/LIQ STOOL RECTALLY. SALOME CARE PROVIDED PRN. PT ROSA FL PO, NO N/V. PT REMAINS PAINFUL W/MVMT, DOES REPOSITION SELF IN BED.
--- NOTE | 2020-05-18 14:20 | NUR ---
pt passed large amount of stool, ostomy appliance leaked. changed at this time. pt has been passing flatus, unseen in bag possibly due to leak. pt reports smelling it earlier in the am.
--- NOTE | 2020-05-18 16:06 | NUR ---
SHIFT SUMMARY POD 3 COLECTOMY WITH NE COLOSTOMY PT AAOX4 VERY PAINFUL TODAY, REQUIRING BREAKTHROUGH IV PAIN MEDICATION ON TOP OF THE PO PAIN MEDICATION. SHE HAS GOTTEN UP TO HER CHAIR AND REPOSITIONS FREQUENTLY IN BED. OSTOMY APPLIANCE CHANGED DURING SHIFT. PT HAVING GAS AND SOFT BROWN STOOL OUT. MCCLURE PATENT AND DRAINING. LAP SITES CDI. PAINFUL WITH EATING. EDUCATED PT ON EATING SLOWER.
[2020-05-19 04:11] LABS: BASOPHILS ABSOLUTE AUTO 0.02 K/mm3 (0.00-0.23); BASOPHILS PERCENT AUTO 0 % (0-2); EOSINOPHILS ABSOLUTE AUTO 0.29 K/mm3 (0.00-0.68); EOSINOPHILS PERCENT AUTO 3 % (0-6); Hematocrit 35.4 % (33.0-51.0); IMMATURE GRAN ABSOLUTE AUTO 0.03 K/mm3 (0.00-0.10); IMMATURE GRAN PERCENT AUTO 0 % (0-1); LYMPHOCYTES ABSOLUTE AUTO 1.13 K/mm3 (0.84-5.20); LYMPHOCYTES PERCENT AUTO 12 % (21-46); MONOCYTES ABSOLUTE AUTO 0.79 K/mm3 (0.16-1.47); MONOCYTES PERCENT AUTO 9 % (4-13); Mean Corpuscular HGB 27.7 pg (26.0-34.0); Mean Corpuscular HGB Conc 31.1 g/dL (31.5-36.5); Mean Corpuscular Volume 89 fL (80-100); Mean Platelet Volume 8.9 fL (9.1-12.4); NEUTROPHILS ABSOLUTE AUTO 6.85 K/mm3 (1.96-9.15); NEUTROPHILS PERCENT AUTO 75 % (41-73); Platelet Count 335 K/mm3 (150-400); RDW Coefficient Variation 18.1 % (11.7-14.2); RDW Standard Deviation 57.9 fL (35.1-46.3); Red Blood Cell Count 3.97 M/mm3 (3.80-5.20); White Blood Cell Count 9.11 K/mm3 (4.00-11.30)
[2020-05-19 04:31] LABS: Alanine Aminotransfer (ALT/SGP 16 U/L (12-78); Albumin, Blood 2.3 g/dL (3.4-5.0); Albumin/Globulin Ratio 0.6 (0.8-1.8); Alk Phos 77 U/L (50-136); Anion Gap 4 mmol/L (6-16); Aspartate Aminotrans (AST/SGOT 10 U/L (12-37); Bilirubin, Total 0.4 mg/dL (0.1-1.0); Blood Urea Nitrogen 5 mg/dL (8-24); Bun/Creatinine Ratio 8.1 (12.0-20.0); CO2, Blood 31 mmol/L (21-32); Calcium, Blood 8.6 mg/dL (8.5-10.1); Chloride, Blood 103 mmol/L (98-108); Creatinine, Blood 0.61 mg/dL (0.40-1.00); Glomerular Filtration Rate >60 (60-); Glucose, Blood 152 mg/dL (70-99); Magnesium, Blood 1.8 mg/dL (1.6-2.4); Potassium, Blood 3.7 mmol/L (3.5-5.5); Sodium, Blood 138 mmol/L (136-145); Total Protein, Blood 6.3 g/dL (6.4-8.2)
[2020-05-19 04:56] LABS: Percent Saturation 15.5 % (15.0-50.0)
--- NOTE | 2020-05-19 04:58 | NUR ---
SHIFT SUMMARY POD4 COLECTOMY W/ COLOSTOMY. VSS. AOX4. PT HAS BEEN VERY PAINFUL TODAY. PAIN MANAGED W/ 0.5MG DILAUDID FOR BREAKTHROUGH AND 6MG DILAUDID PO MED. OSTOMY APPLIANCE WAS LEAKING WITH MODERATE LIQUID OUTPUT AT THE BEGINNING OF THE SHIFT. APPLIANCE WAS CHANGED. NO OUTPUT IN HER BAG SINCE THEN BUT HAS BEEN PASSING FLATUS. MCCLURE IS PATENT AND INTACT, OUTPUT OF 1200ML. IV LR IS STILL INFUSING. DENIES N/V. PT IS SLEEPING AND RESTING COMFORTBLE IN HER BED RIGHT NOW. CALL LIGHT W/IN REACH.
--- NOTE | 2020-05-19 12:08 | NUR ---
Pt sitting in chair upon arrival and reports 6/10 pain. Discussed past medications she received and considering long acting pain medication. Pt reports receiving Fentanyl patch in the past when she had cancer. Pt reports this medication was beneficial. No other concerns reported at this time. Spoke with Bedside RN Zaira and discussed case. Spoke with Dr Williamson and discussed case. Dr Williamson reports trying Pt on Fentanyl Patch in past with no benefit. Dr Williamson will place order for Toradol which has been beneficial in the past. Palliative Care will remain available.
--- NOTE | 2020-05-19 18:52 | NUR ---
SHIFT SUMMARY PT A&OX4, VSS, POD4 SIG COLOSTOMY, SMALL AMT BROWN STOOL OUT. MCCLURE OUT AT 1130, PT VOIDED BSC; ATTENDS ON FOR DRAINAGE; PERICARE WITH WARM WATER /CHLORHEXIDINE PROVIDED THIS SHIFT. AMBULATED WITH FWW TO CHAIR/BSC;AMB HALLWAY WITH PHYSICAL THERAPY. UP TO CHAIR FOR MEALS. TCDB & I.S. EDU & ENC Q1H WHILE AWAKE; PT DEMONSTRATED. ROSA FULL LIQUID DIET, DENIES N&V. PT PROVIDED OSTOMY VIDEOS TO WATCH TO HELP PT PREPARE TO GO HOME; [employer] FORM FAXED. PAIN MANAGED WITH 10 MG PERC AND TORADOL. WILL REPORT TO ONCOMING ERNIE RN.
--- NOTE | 2020-05-20 04:45 | NUR ---
SHIFT SUMMARY PT IS A/O X4, SBA WITH FWW UP TO BATHROOM. TOLERATING PO INTAKE AND VOIDING. OSTOMY PUTTING OUT SOFT BROWN STOOL. DENIES N/V OVERNIGHT. PAIN MANAGED WITH PO PAIN MED PER ORDERS AND TORADOL PER ORDERS. NO ACUTE CHANGES OVERNIGHT. DISCUSSED OSTOMY EDUCATION WITH PT; PT REPORTS SHE CAN BURP OSTOMY ON HER OWN. PT RESTING IN BED AT THIS TIME WITH CALL LIGHT IN REACH.
--- NOTE | 2020-05-20 14:01 | NUR ---
DR ISSA IN TO SEE PT.
[2020-05-20] MEDS ORDERED: INSULANPEN SC (15:54)
[2020-05-20] MEDS ORDERED: MIRT30 SL (15:56)
[2020-05-20] MEDS ORDERED: Percocet 10-321 EACH PO (15:57)
--- NOTE | 2020-05-20 16:51 | NUR ---
discharged DC'D IVS, CATHETERS INTACT. CALLED PRESCRIPTION INTO [facility] PER PT REQUEST. REVIEWED DC INSTRUCTIONS W/PT; VERBALIZED UNDERSTANDING. PROVIED OSTOMY SUPPLIES. PT LEFT UNIT IN WC W/POSSESSIONS AND DC PAPERWORK IN HAND TO RIDE AWAITING OUTSIDE.
== END 2020-05-20 16:45 | disposition home or self-care (01) | DRG 853 ==
LOC: ER 12:01 → ICUE 19:28 → ERHOLD 19:28 → MEDS 19:28 → ICUE 19:44 → MEDS 04-29 21:54 → SURS 05-15 12:15
PROVIDERS: Emergency Medicine; Internal Medicine; Internal Medicine Critical Care Medicine; Internal Medicine Gastroenterology; Surgery; ADMIT Internal Medicine
PROC: 0DJD8ZZ Inspection of Lower Intestinal Tract, Via Natural or Artificial Opening Endoscopic (ICD-10-PCS; 2020-05-10)
PROC: 0D1N4Z4 Bypass Sigmoid Colon to Cutaneous, Percutaneous Endoscopic Approach (ICD-10-PCS; 2020-05-11)
PROC: 0DJD8ZZ Inspection of Lower Intestinal Tract, Via Natural or Artificial Opening Endoscopic (ICD-10-PCS; principal; 2020-05-15 10:30)
DX: A41.9 Sepsis, unspecified organism (principal); R65.21 Severe sepsis with septic shock; E11.52 Type 2 diabetes mellitus with diabetic peripheral angiopathy with gangrene; I96 Gangrene, not elsewhere classified; N82.3 Fistula of vagina to large intestine; N39.0 Urinary tract infection, site not specified; E87.6 Hypokalemia; Z79.4 Long term (current) use of insulin; D64.9 Anemia, unspecified; K52.9 Noninfective gastroenteritis and colitis, unspecified; F32.9 Major depressive disorder, single episode, unspecified; K21.9 Gastro-esophageal reflux disease without esophagitis; E03.9 Hypothyroidism, unspecified; G25.81 Restless legs syndrome; E66.01 Morbid (severe) obesity due to excess calories; Z85.048 Personal history of other malignant neoplasm of rectum, rectosigmoid junction, and anus; E78.5 Hyperlipidemia, unspecified; F17.210 Nicotine dependence, cigarettes, uncomplicated; I48.0 Paroxysmal atrial fibrillation; Z95.5 Presence of coronary angioplasty implant and graft; J44.9 Chronic obstructive pulmonary disease, unspecified
CPT/HCPCS: 0241U; 36415; 51702; 74177; 80048; 80053; 81001; 82728; 82947; 83540; 83550; 83605; 83735; 85014; 85018; 85025; 85027; 85384; 85610; 85651; 86850; 86900; 86901; 87040; 87077; 87086; 87186; 93005; 93010; 94640; 94760; 94762; 96365-59; 96366-59; 96367-59; 96375-59; 97110; 97116; 97161; 97530; 99285-25; A9270; A9270-GY; J0696; J1100; J1170; J1885; J2060; J2250; J2405; J2543; J2704; J3010; J3480; J7050; J7120; Q2038; Q9967

== ENCOUNTER 2020-05-28 15:24 | Emergency (ER) | payer OTHER ==
[~2020-05-28] VITALS: Ht 167.6 cm; Wt 84.8 kg
[~2020-05-28 15:24] MED LIST changes: +BASAGLAR K100 UNIT/5 SC; +Cleocin HCl300 MG PO; +FAMO40 PO; +GABA100 PO; +INSULANPEN SC; +MIRT30 SL; +Mobic15 MG PO; +Norco 10-325 T1 EACH PO; +ONDA4ODT MM; +Percocet 10-321 EACH PO; +XARELTO2.5 M1 PO
[2020-05-28 16:15] LABS: BASOPHILS ABSOLUTE AUTO 0.03 K/mm3 (0.00-0.23); BASOPHILS PERCENT AUTO 0 % (0-2); EOSINOPHILS ABSOLUTE AUTO 0.12 K/mm3 (0.00-0.68); EOSINOPHILS PERCENT AUTO 2 % (0-6); Hematocrit 34.1 % (33.0-51.0); Hemoglobin 10.6 g/dL (11.5-16.0); IMMATURE GRAN ABSOLUTE AUTO 0.02 K/mm3 (0.00-0.10); IMMATURE GRAN PERCENT AUTO 0 % (0-1); LYMPHOCYTES ABSOLUTE AUTO 1.42 K/mm3 (0.84-5.20); LYMPHOCYTES PERCENT AUTO 20 % (21-46); MONOCYTES ABSOLUTE AUTO 0.71 K/mm3 (0.16-1.47); MONOCYTES PERCENT AUTO 10 % (4-13); Mean Corpuscular HGB 27.7 pg (26.0-34.0); Mean Corpuscular HGB Conc 31.1 g/dL (31.5-36.5); Mean Corpuscular Volume 89 fL (80-100); Mean Platelet Volume 9.5 fL (9.1-12.4); NEUTROPHILS ABSOLUTE AUTO 4.92 K/mm3 (1.96-9.15); NEUTROPHILS PERCENT AUTO 68 % (41-73); Platelet Count 487 K/mm3 (150-400); RDW Coefficient Variation 19.1 % (11.7-14.2); RDW Standard Deviation 62.5 fL (35.1-46.3); Red Blood Cell Count 3.83 M/mm3 (3.80-5.20); White Blood Cell Count 7.22 K/mm3 (4.00-11.30)
[2020-05-28 16:31] LABS: International Normalized Ratio 0.97; Prothrombin Time Results 10.4 Sec (9.7-11.5)
[2020-05-28 16:37] LABS: Alanine Aminotransfer (ALT/SGP 16 U/L (12-78); Albumin, Blood 2.7 g/dL (3.4-5.0); Albumin/Globulin Ratio 0.6 (0.8-1.8); Alk Phos 102 U/L (50-136); Anion Gap 9 mmol/L (6-16); Aspartate Aminotrans (AST/SGOT 6 U/L (12-37); Bilirubin, Total 0.2 mg/dL (0.1-1.0); Blood Urea Nitrogen 12 mg/dL (8-24); Bun/Creatinine Ratio 16.4 (12.0-20.0); CO2, Blood 24 mmol/L (21-32); Calcium, Blood 8.7 mg/dL (8.5-10.1); Chloride, Blood 105 mmol/L (98-108); Creatinine, Blood 0.73 mg/dL (0.40-1.00); Globulin, Blood 4.9 g/dL (2.2-4.0); Glomerular Filtration Rate >60 (60-); Glucose, Blood 351 mg/dL (70-99); Potassium, Blood 3.3 mmol/L (3.5-5.5); Sodium, Blood 138 mmol/L (136-145); Total Protein, Blood 7.6 g/dL (6.4-8.2)
[2020-05-28 17:44] LABS: Source, Urine Catheter
[2020-05-28 17:52] LABS: Appearance, Urine Clear (Clear); Bilirubin, Urine Neg (Neg); Blood, Urine 1+ (Neg); Color, Urine Yellow (P-Yellow); Glucose Qualitative, Urine 4+ (Neg); Ketones, Urine Neg (Neg); Leukocyte Esterase, Urine 2+ (Neg); Nitrite, Urine Pos (Neg); Protein, Urine 1+ (Neg); Urobilinogen, Urine NORM (Normal)
[2020-05-28 18:10] LABS: Bacteria Many /hpf; Red Blood Cells, Urine 0-2 /hpf (0-2); Squamous Epithelial Cells Few /hpf (Few)
[2020-05-28] MEDS ORDERED: AMOCLA875 PO (19:19)
== END 2020-05-28 19:45 | disposition home or self-care (01) ==
LOC: ER 15:24
PROVIDERS: Physician Assistant
DX: N82.3 Fistula of vagina to large intestine (principal); N39.0 Urinary tract infection, site not specified; B34.9 Viral infection, unspecified; G89.18 Other acute postprocedural pain; I10 Essential (primary) hypertension; E11.9 Type 2 diabetes mellitus without complications; E78.5 Hyperlipidemia, unspecified; J44.9 Chronic obstructive pulmonary disease, unspecified; Z79.4 Long term (current) use of insulin; Z79.02 Long term (current) use of antithrombotics/antiplatelets; Z87.891 Personal history of nicotine dependence; Z88.5 Allergy status to narcotic agent; Z91.09 Other allergy status, other than to drugs and biological substances
CPT/HCPCS: 36415; 71045; 74177; 80053; 81001; 83605; 84145; 85025; 85610; 85730; 86140; 87040; 87077; 87086; 87186; 93005; 93010; 96365; 99284-25; J2543; J7030; Q9967

== ENCOUNTER → 2020-11-26 | Outpatient (CLI) | payer OTHER ==
[~2020-11-26] MED LIST changes: +AMOCLA875 PO
[2020-11-27 17:09] LABS: HPV 16 Negative (Negative); HPV 18 Negative (Negative); HPV OTHER HR TYPES Negative (Negative)
== END | disposition home or self-care (01) ==
LOC: LAB 10:01 → LAB SHORT 10:01
PROVIDERS: Nurse Practitioner Family
DX: Z01.419 Encounter for gynecological examination (general) (routine) without abnormal findings (principal); Z11.51 Encounter for screening for human papillomavirus (HPV)
CPT/HCPCS: 87624; 88142

== ENCOUNTER 2022-02-25 11:56 | Emergency (ER) | payer OTHER ==
[~2022-02-25] VITALS: Ht 167.6 cm; Wt 88.5 kg
[~2022-02-25 11:56] MED LIST changes: +CARV3.125; +FUROSEMIDE20 MG PO; +NICODERM CQ1 EA17; +NITR.4SL; +SEMGLEE PE100 UNIT/1; +XARELTO20 MG
== END 2022-02-25 15:31 | disposition home or self-care (01) ==
LOC: ER 11:56
DX: E11.51 Type 2 diabetes mellitus with diabetic peripheral angiopathy without gangrene (principal); I70.212 Atherosclerosis of native arteries of extremities with intermittent claudication, left leg; I70.8 Atherosclerosis of other arteries; I10 Essential (primary) hypertension; E78.5 Hyperlipidemia, unspecified; J44.9 Chronic obstructive pulmonary disease, unspecified; Z88.8 Allergy status to other drugs, medicaments and biological substances; Z88.6 Allergy status to analgesic agent; Z91.048 Other nonmedicinal substance allergy status; Z88.5 Allergy status to narcotic agent; Z79.899 Other long term (current) drug therapy; Z79.02 Long term (current) use of antithrombotics/antiplatelets; Z79.4 Long term (current) use of insulin; Z79.01 Long term (current) use of anticoagulants; Z87.891 Personal history of nicotine dependence
CPT/HCPCS: 93926; 99283-25

== ENCOUNTER 2022-03-08 06:44 | Day surgery (SDC) | payer OTHER ==
[~2022-03-08] VITALS: Ht 167.6 cm; Wt 86.0 kg
[~2022-03-08 06:44] MED LIST changes: +ALLERCLEAR10 MG PO; -CARV3.125; +CARV3.125 PO; +Chantix1 MG PO; +HYDR1TAB94 PO; +JARDIANCE25 MG PO; -XARELTO20 MG; +XARELTO20 MG PO
[2022-03-08] MEDS ORDERED: POTCHL20ER PO (07:33)
[2022-03-08] MEDS ORDERED: TRELEGY ELLIPT1 EACH INH (07:33)
[2022-03-08] MEDS ORDERED: GLIP10ER PO (07:34)
--- NOTE | 2022-03-08 10:44 | NUR ---
PT BACK TO RECOVERY ROOM VIA BED AFTER PROCEDURE. DROWSY, BUT EASILY ROUSES TO VERBAL STIMULI. REPORT FROM NIKKI ANTOINE. VS STABLE, CALL LIGHT IN REACH. RIGHT GROIN SITE SOFT AND NON-TENDER. SOME PURPLE BRUISING AROUND SITE.
--- NOTE | 2022-03-08 12:41 | NUR ---
HEAD OF BED ELEVATED TO APPROX 45 DEGREES. PT EATING LUNCH IN NO DISTRESS. VSS, CALL LIGHT IN REACH.
--- NOTE | 2022-03-08 13:33 | NUR ---
PT SITTING UP ON THE SIDE OF THE BED, RIGHT GROIN SITE REMAINS STABLE WITHOUT BLEEDING OR SWELLING. PT STATES SHE CONTINUES TO HAVE SOME PAIN IN THE LEFT FOOT, BUT THAT IT FEELS MUCH BETTER THAN UPON ARRIVAL TO UNIT THIS AM.
--- NOTE | 2022-03-08 13:52 | NUR ---
PT ABLE TO AMBULATE TO THE BATHROOM USING WALKER. RIGHT GROIN SITE REMAINS SOFT, PT STATES THE AREA IS TENDER, BUT NOT PAINFUL.
--- NOTE | 2022-03-08 14:30 | NUR ---
IV DC'D, CATH INTACT. PT GIVEN DC INSTRUCTIONS, VERBALIZED UNDERSTANDING. OUT TO CAR VIA WHEELCHAIR, ACCOMPANIED BY DAUGHTER.
== END 2022-03-08 14:30 | disposition home or self-care (01) ==
LOC: MHTC 06:44
DX: I70.222 Atherosclerosis of native arteries of extremities with rest pain, left leg (principal); I25.10 Atherosclerotic heart disease of native coronary artery without angina pectoris; J44.9 Chronic obstructive pulmonary disease, unspecified; I10 Essential (primary) hypertension; E11.9 Type 2 diabetes mellitus without complications; I25.2 Old myocardial infarction; F17.200 Nicotine dependence, unspecified, uncomplicated
CPT/HCPCS: 37227; 37228; 37232; 75716; 75774; 76937; 82947; 85347; 99152; 99153; C1714; C1725; C1760; C1769; C1874; C1887; C1894; C2623; J1644; J2250; J3010; J7030; J7040; Q9967

== ENCOUNTER 2022-03-22 06:57 | Day surgery (SDC) | payer OTHER ==
[~2022-03-22] VITALS: Ht 167.6 cm; Wt 84.2 kg
[~2022-03-22 06:57] MED LIST changes: +GLIP10ER PO; +POTCHL20ER PO; +TRELEGY ELLIPT1 EACH INH
[2022-03-22] MEDS ORDERED: Budeprion Sr150 MG PO (10:37)
--- NOTE | 2022-03-22 13:11 | NUR ---
GETTING PT READY FOR DISCHARGE HOME, TOES ON R FOOT NOTED TO BE MORE PURPLE THAN UPON ADMIT TO RECOVERY. DR NOTIFIED AND ORDERS RECIEVED FOR HEPARIN DRIP PER PHARMACY.
--- NOTE | 2022-03-22 15:13 | NUR ---
pt right toes looking slightly better with heparin drip infusing. pt to be admitted to pcu overnight. r foot warm to touch
--- NOTE | 2022-03-22 19:44 | NUR ---
PT ARRIVED TO UNIT AT APPROXIMATELY 1600. VSS, L GROIN SITE CDI. RECEIVED REPORT AT BEDSIDE FROM OR NURSE. R TOES CYANOTIC AND ABSENT DP PULSES WHICH WAS REPORTED REASON FOR STAYING OVERNIGHT AND POSSIBLE REVASC IN AM. PT WITH BILATERAL LEG PAIN RELIEVED BY HOME DOSE OF PO NORCO. SEE EMAR FOR DETAILS. ADMISSION ASSESSMENT COMPLETE. WILL PASS ON TO DAY RN
--- NOTE | 2022-03-23 05:55 | NUR ---
SHIFT SUMMARY PT A&O X4. PLEASANT UPON INTERACTIONS AND RESPONDS APPROPRIATELY. VSS. PT REPORTS BEING TIRED, BUT FEELING LIKE SHE IS GETTING GOOD REST. PT REPORTS NUMBNESS, TINGLING AND SENSITIVITY BLE DT PVD. PT STATES THAT THE PAIN SEEMS TO INCREASE WHEN GETTING TO WALK TO RESTROOM. REPOSITIONING, WARM BLANKETS AND MEDICATION PER EMAR PROVIDED FOR RELIEF. PT DENIES DISPROPORTIONATE PAIN OR DIFFERING PAIN THAN PREVIOUS, REPORTS CAN FEEL TOUCH AND STIMULI IN BOTH FEET. MILD DISCOLORATION NOTED IN TOES ON BOTH FEET, ALTHOUGH SEEMED TO HAVE IMPROVED. PULSES CHECKED W/DOPPLER. D. PEDIS PULSES UNABLE TO BE PALPATED OR FOUND ON DOPPLER. TIBIAL ABLE TO BE FOUND ON DOPPLER, ALTHOUGH FAINT. PT UP TO BATHROOM BUT SINCE PAIN/WEAKNESS REPORTS, THIS RN ENCOURAGED PT TO USE BSC. PT NPO SINCE MIDNIGHT IN PREPARATION FOR POSSIBLE PROCEDURE TODAY. NO OTHER CHANGES THROUGHOUT NIGHT. HEPARIN GTT INFUSING PER EMAR.
--- NOTE | 2022-03-23 10:51 | NUR ---
DISCHARGE UPDATE DISCHARGE PACKET GONE OVER WITH PT AT 1035. PT DISCHARGED AT 1040 VIA WHEELCHAIR AND ON RA. PT ABLE TO TRANSFER SELF TO AND FROM WHEELCHAIR ON HER OWN, TOLERATED WELL. DISCHARGE PACKET IN BAG ALONG WITH PERSONAL BELONGINGS AND WITH PT DURING DISCHARGE.
== END 2022-03-23 10:39 | disposition home or self-care (01) ==
LOC: MHTC 06:57 → PCU 15:35 → MHTC 03-23 10:39
DX: E11.51 Type 2 diabetes mellitus with diabetic peripheral angiopathy without gangrene (principal); I70.213 Atherosclerosis of native arteries of extremities with intermittent claudication, bilateral legs; I70.222 Atherosclerosis of native arteries of extremities with rest pain, left leg; J44.9 Chronic obstructive pulmonary disease, unspecified; F17.200 Nicotine dependence, unspecified, uncomplicated; Z79.84 Long term (current) use of oral hypoglycemic drugs; Z79.4 Long term (current) use of insulin
CPT/HCPCS: 36415; 37224; 37231; 37235; 75625; 75716; 75774; 76937; 82947; 85347; 85730; 94640; 94664; 94760; 99152; 99153; A9270; C1714; C1725; C1760; C1769; C1887; C1894; C9764; J1644; J1815; J2250; J3010; J7030; J7040; Q9967

== ENCOUNTER → 2022-06-06 | Outpatient (CLI) | payer OTHER ==
[~2022-06-06] MED LIST changes: +Budeprion Sr150 MG PO
== END | disposition home or self-care (01) ==
LOC: LAB 17:55 → LAB SHORT 17:55
DX: N39.0 Urinary tract infection, site not specified (principal); R31.9 Hematuria, unspecified
CPT/HCPCS: 87077; 87086; 87186

== ENCOUNTER → 2022-08-26 | Outpatient (CLI) | payer OTHER ==
[2022-08-26 16:17] LABS: Microalbumin, Urine Quant. 14.7 mg/L (0.000-20.000); Protein, Urine Quantitative 10.9 mg/dL (0.0-11.9)
== END | disposition home or self-care (01) ==
LOC: LAB SHORT 14:17
PROVIDERS: Internal Medicine Nephrology
DX: N18.30 Chronic kidney disease, stage 3 unspecified (principal); D63.1 Anemia in chronic kidney disease; N25.81 Secondary hyperparathyroidism of renal origin; E55.9 Vitamin D deficiency, unspecified; R76.9 Abnormal immunological finding in serum, unspecified; R94.5 Abnormal results of liver function studies; R94.6 Abnormal results of thyroid function studies
CPT/HCPCS: 81050; 82043; 82570; 84156

== ENCOUNTER 2022-11-16 02:01 | Day surgery (SDC) | payer OTHER | END 2022-11-16 22:50 | disposition home or self-care (01) | LOC: WOUND 02:01 | DX: E11.621 Type 2 diabetes mellitus with foot ulcer (principal); L97.522 Non-pressure chronic ulcer of other part of left foot with fat layer exposed; E11.622 Type 2 diabetes mellitus with other skin ulcer; I25.10 Atherosclerotic heart disease of native coronary artery without angina pectoris; I10 Essential (primary) hypertension; L97.421 Non-pressure chronic ulcer of left heel and midfoot limited to breakdown of skin; E11.51 Type 2 diabetes mellitus with diabetic peripheral angiopathy without gangrene | CPT/HCPCS: 73630; 99406; A9270; G0463 ==

== ENCOUNTER 2022-11-30 08:24 | Inpatient (IN) | payer OTHER ==
[~2022-11-30] VITALS: Ht 167.6 cm; Wt 69.8 kg
[2022-11-30 10:39] LABS: BASOPHILS ABSOLUTE AUTO 0.03 K/mm3 (0.00-0.23); BASOPHILS PERCENT AUTO 0 % (0-2); EOSINOPHILS ABSOLUTE AUTO 0.12 K/mm3 (0.00-0.68); EOSINOPHILS PERCENT AUTO 1 % (0-6); Hematocrit 38.8 % (33.0-51.0); Hemoglobin 13.3 g/dL (11.5-16.0); IMMATURE GRAN ABSOLUTE AUTO 0.03 K/mm3 (0.00-0.10); IMMATURE GRAN PERCENT AUTO 0 % (0-1); LYMPHOCYTES ABSOLUTE AUTO 1.62 K/mm3 (0.84-5.20); LYMPHOCYTES PERCENT AUTO 13 % (21-46); MONOCYTES ABSOLUTE AUTO 0.64 K/mm3 (0.16-1.47); MONOCYTES PERCENT AUTO 5 % (4-13); Mean Corpuscular HGB 32.7 pg (26.0-34.0); Mean Corpuscular HGB Conc 34.3 g/dL (31.5-36.5); Mean Corpuscular Volume 95 fL (80-100); NEUTROPHILS ABSOLUTE AUTO 9.76 K/mm3 (1.96-9.15); NEUTROPHILS PERCENT AUTO 80 % (41-73); Platelet Count 262 K/mm3 (150-400); RDW Coefficient Variation 12.8 % (11.7-14.2); RDW Standard Deviation 45.4 fL (35.1-46.3); Red Blood Cell Count 4.07 M/mm3 (3.80-5.20)
[2022-11-30 11:13] LABS: Albumin/Globulin Ratio 0.7 (0.8-1.8); Bilirubin, Total 0.3 mg/dL (0.1-1.0); Bun/Creatinine Ratio 15.1 (12.0-20.0); C-Reactive Protein, High Sens. 71.1 mg/L (0.000-3.000); Calcium, Blood 9.1 mg/dL (8.5-10.1); Creatinine, Blood 0.8 mg/dL (0.40-1.00); Globulin, Blood 4.1 g/dL (2.2-4.0); Potassium, Blood 3.6 mmol/L (3.5-5.5); Total Protein, Blood 7.1 g/dL (6.4-8.2)
[2022-11-30] MEDS ORDERED: KERENDIA20 MG PO (11:34)
[2022-11-30] MEDS ORDERED: NEURONTIN300 MG PO (11:35)
[2022-11-30 14:27] VITALS: BP 152/73
[2022-11-30 14:51] VITALS: BP 150/62
[2022-11-30] MEDS ORDERED: OZEMPIC2 MG/0.75 SC (15:22)
--- NOTE | 2022-11-30 15:31 | NUR ---
ADMISSION: REPORT RECEIVED FROM ED RN TRISTA. PT TO UNIT AT ABOUT 1430. PT IS A/O, VSS. THERE ARE SEVERAL SMALL GAUZE DRESSINGS TO PT'S L FOOT, NO DRAINAGE. PT REPORTS PAIN IS MANAGED AT THIS TIME. PT WIEGHED AND IV ANTIBIOTICS STARTED. PT ORIENTED TO ROOM AND CALL LIGHT. INSTUCTED TO CALL FOR ASSISTANCE TO BATHROOM. DR. HARRELL CALLED AT 1500 FOR CONSULT, PT NORMALLY SEES DR. HARRELL. DR. HARRELL IS OUT OF TOWN TIL TOMORROW. DR. FRANCISOC IS THE GAS METER MECHANIC OPERATOR SPECIALIST COMMUNICATIONS, THIS RN CALLED DR. FRANCISCO'S CELL PHONE AT 1530 AND LEFT A MESSAGE WITH CALL BACK NUMBER.
[2022-11-30] MEDS ORDERED: DICLOFENAC SOD100 G1 TOP (17:24)
[2022-11-30] MEDS ORDERED: DOCU100 PO (17:26)
[2022-11-30] MEDS ORDERED: LACT PO (17:27)
[2022-11-30] MEDS ORDERED: LIDO700A20 TOP (17:28)
[2022-11-30] MEDS ORDERED: POTCHL20ER PO (17:29)
[2022-11-30] MEDS ORDERED: Ranitidine HCl150 M1 PO (17:29)
--- NOTE | 2022-11-30 17:43 | NUR ---
PT MEDICATION LIST UPDATED. LIST FROM PHARMACY PLACED IN PT CHART
--- NOTE | 2022-11-30 18:50 | NUR ---
THIS RN SPOKE WITH DR. FRANCISCO AT 1800.PLAN TO MAKE PT NPO AT [address] FRANCISCO WILL SEE TOMORROW
[2022-11-30 19:08] VITALS: BP 138/73
--- NOTE | 2022-11-30 19:35 | NUR ---
PT EDUCATED ON RISK OF IGGITION SOURCES AND SMOKING WHILE USING OXYGEN, PT VERBILZED UNDERSTANDING.
[2022-12-01 03:11] VITALS: BP 110/53
--- NOTE | 2022-12-01 04:14 | NUR ---
SHIFT SUMMARY NO ACUTE EVENTS THIS SHIFT, PATIENT MEDICATED FOR PAIN AND MANAGED WELL. PATIENT HAS BEEN NPO SINCE 0000. IV ABX AND FLUIDS INFUSED. PICTURES OF LEFT FOOT TAKEN AND PLACED IN CHART. PATIENT IS AOX4, ABLE TO PIVOT TRANSFER WITH FWW, GB AND 1 ASSIST TO BSC. VOIDING WELL, DENIES N/V, HAS SPANISH MOSS PICKER OSTOMY WITH NO OUTPUT THIS SHIFT. CONSULT TO INTERVENTIONAL RADIOLOGY DONE. VSS, CALL LIGHT IN REACH, WILL REPORT TO DAY RN.
[2022-12-01 04:22] LABS: BASOPHILS ABSOLUTE AUTO 0.03 K/mm3 (0.00-0.23); BASOPHILS PERCENT AUTO 0 % (0-2); EOSINOPHILS ABSOLUTE AUTO 0.12 K/mm3 (0.00-0.68); EOSINOPHILS PERCENT AUTO 2 % (0-6); Hematocrit 36.6 % (33.0-51.0); Hemoglobin 12.3 g/dL (11.5-16.0); IMMATURE GRAN ABSOLUTE AUTO 0.01 K/mm3 (0.00-0.10); IMMATURE GRAN PERCENT AUTO 0 % (0-1); LYMPHOCYTES ABSOLUTE AUTO 1.66 K/mm3 (0.84-5.20); LYMPHOCYTES PERCENT AUTO 20 % (21-46); MONOCYTES ABSOLUTE AUTO 0.75 K/mm3 (0.16-1.47); MONOCYTES PERCENT AUTO 9 % (4-13); Mean Corpuscular HGB 32.5 pg (26.0-34.0); Mean Corpuscular HGB Conc 33.6 g/dL (31.5-36.5); Mean Corpuscular Volume 97 fL (80-100); Mean Platelet Volume 8.9 fL (9.1-12.4); NEUTROPHILS ABSOLUTE AUTO 5.66 K/mm3 (1.96-9.15); NEUTROPHILS PERCENT AUTO 69 % (41-73); Platelet Count 227 K/mm3 (150-400); RDW Coefficient Variation 12.6 % (11.7-14.2); Red Blood Cell Count 3.78 M/mm3 (3.80-5.20); White Blood Cell Count 8.23 K/mm3 (4.00-11.30)
[2022-12-01 04:45] LABS: Albumin, Blood 2.5 g/dL (3.4-5.0); Albumin/Globulin Ratio 0.7 (0.8-1.8); Bilirubin, Total 0.4 mg/dL (0.1-1.0); Bun/Creatinine Ratio 17.3 (12.0-20.0); Calcium, Blood 8.4 mg/dL (8.5-10.1); Creatinine, Blood 0.92 mg/dL (0.40-1.00); Globulin, Blood 3.6 g/dL (2.2-4.0); Potassium, Blood 3.2 mmol/L (3.5-5.5); Total Protein, Blood 6.1 g/dL (6.4-8.2)
[2022-12-01 07:45] VITALS: BP 134/67
--- NOTE | 2022-12-01 08:55 | NUR ---
A&OX4, DENIES ANY PAIN, REPORTS HAVING NEUROPATHY ON BLE'S, NO PALPABLE PULSES NOTED ON BLE'S, POSTERIOR TIBIAL PULSES NOTED LLE VIA DOPPLER, DR. BECERRIL AWARE, IN TO SEE PT THIS AM, AWAITING CONSULT FROM DR. MONDRAGON.
--- NOTE | 2022-12-01 10:38 | NUR ---
Pt. is awake in bed and welcomes my visit. Pt. displays evidence of visceral pain from her foot ulcer. Pt. verbalized that the medicine was making her feel loopy. This asset protection specialist chose to keep the visit short. Prayed with Pt. Pt. verbalized gratitude for the spiritual care visit and welcomed this asset protection specialist to return.
--- NOTE | 2022-12-01 13:01 | NUR ---
PT RESTING IN BED, LOAN KUMAR SAW PT, STATES NO NEED FOR VASCULAR INTERVENTIONS TODAY, PT IS OK TO EAT.
--- NOTE | 2022-12-01 14:54 | NUR ---
SUMMARY PT HAS HAD 2 EMESIS TODAY, DENIES ANY NAUSEA, STATES VOMITING "COMES ALL OF A SUDDEN" REPORTS HAVING NAUSEA WHEN TRYING TO EAT SOMETHING, DR. LLOYD AWARE, DENIED ANY PAIN ON LLE, LLE ELEVATED ON PILLOWS, PLAN FOR VASCULAR STUDIES TOMORROW PER LOAN KUMAR, PT AWARE, NWB ON LLE OOB TO BSC W/ STANDBY ASSIST AND WALKER, ROSA WELL, NO ACUTE CHANGES THIS SHIFT.
[2022-12-01 15:11] VITALS: BP 164/71
[2022-12-01 17:28] LABS: International Normalized Ratio 1.07; Prothrombin Time Results 11.2 Sec (9.7-11.5)
[2022-12-01 19:36] VITALS: BP 126/67
[2022-12-02 01:15] LABS: BASOPHILS ABSOLUTE AUTO 0.03 K/mm3 (0.00-0.23); BASOPHILS PERCENT AUTO 0 % (0-2); EOSINOPHILS ABSOLUTE AUTO 0.12 K/mm3 (0.00-0.68); EOSINOPHILS PERCENT AUTO 1 % (0-6); Hematocrit 36.3 % (33.0-51.0); Hemoglobin 12.3 g/dL (11.5-16.0); IMMATURE GRAN ABSOLUTE AUTO 0.04 K/mm3 (0.00-0.10); IMMATURE GRAN PERCENT AUTO 1 % (0-1); LYMPHOCYTES ABSOLUTE AUTO 1.75 K/mm3 (0.84-5.20); LYMPHOCYTES PERCENT AUTO 20 % (21-46); MONOCYTES ABSOLUTE AUTO 0.83 K/mm3 (0.16-1.47); MONOCYTES PERCENT AUTO 10 % (4-13); Mean Corpuscular HGB 32.1 pg (26.0-34.0); Mean Corpuscular HGB Conc 33.9 g/dL (31.5-36.5); Mean Corpuscular Volume 95 fL (80-100); NEUTROPHILS ABSOLUTE AUTO 5.94 K/mm3 (1.96-9.15); NEUTROPHILS PERCENT AUTO 68 % (41-73); Platelet Count 242 K/mm3 (150-400); RDW Coefficient Variation 12.5 % (11.7-14.2); RDW Standard Deviation 42.9 fL (35.1-46.3); Red Blood Cell Count 3.83 M/mm3 (3.80-5.20); White Blood Cell Count 8.71 K/mm3 (4.00-11.30)
--- NOTE | 2022-12-02 01:16 | NUR ---
HEPARIN ORDER REVIEWING HEPARIN ORDER AND NOTICED ORDER WAS PLACED UNDER DR. SEYMOUR, CALL PLACED TO PHARMACY AND CONFIRMED HEPARIN WAS ORDERED BY ER MISTAKENLY PUT IN UNDER NICK SEYMOUR. HEPARIN IS CURRENTLY RUNNING.
[2022-12-02 02:08] LABS: Albumin, Blood 2.6 g/dL (3.4-5.0); Albumin/Globulin Ratio 0.7 (0.8-1.8); Bilirubin, Total 0.4 mg/dL (0.1-1.0); Bun/Creatinine Ratio 14.3 (12.0-20.0); Calcium, Blood 8.3 mg/dL (8.5-10.1); Creatinine, Blood 0.84 mg/dL (0.40-1.00); Globulin, Blood 3.7 g/dL (2.2-4.0); Total Protein, Blood 6.3 g/dL (6.4-8.2)
[2022-12-02 03:00] VITALS: BP 152/79
[2022-12-02 03:31] LABS: Vancomycin, Trough 18.2 ug/mL (5.0-10.0)
--- NOTE | 2022-12-02 03:59 | NUR ---
SHIFT SUMMARY NO ACUTE EVENTS THIS SHIFT. POWER GLIDE PLACED IN LEFT UPPER ARM, NEW PERIPHERAL 22 G PLACED IN L FOREARM. HEPARIN IS RUNNING IN POWER GLIDE, ABX IS RUNNING IN PERPHERAL. PAIN MANAGED WELL WITH MORPHINE. OSTOMY DOES NOT HAVE ANY OUTPUT AT THIS TIME. PATIENT VOIDING WELL AND REMAINS NWB TO LLE. VSS. CALLING APPROPRIATELY. WILL REPORT TO DAY RN.
[2022-12-02 07:06] VITALS: BP 169/69
--- NOTE | 2022-12-02 12:00 | NUR ---
THIS NURSE GAVE REPORT TO SONALI JORDAN.
--- NOTE | 2022-12-02 12:10 | NUR ---
PATIENT WAS SALINE LOCKED FROM HER HEPARIN DRIP AT THIS TIME PER DR. LLOYD'S ORDERS SINCE ITS BEEN 2 HOURS AFTER SHE WAS GIVEN HER XARELTO. PATIENT IS LAYING IN BED WITH CALL LIGHT IN REACH.
[2022-12-02] MEDS ORDERED: Norco 5-325 Ta1 EACH PO (14:40)
[2022-12-02 15:06] VITALS: BP 131/60
== END 2022-12-02 15:26 | disposition home or self-care (01) | DRG 300 ==
LOC: ER 08:24 → SURS 11:46 → ERHOLD 11:46 → SURS 14:15
PROVIDERS: Emergency Medicine; Family Medicine; Physician Assistant; Student in an Organized Health Care Education/Training Program; ADMIT Hospitalist
DX: E11.52 Type 2 diabetes mellitus with diabetic peripheral angiopathy with gangrene (principal); I70.262 Atherosclerosis of native arteries of extremities with gangrene, left leg; L97.829 Non-pressure chronic ulcer of other part of left lower leg with unspecified severity; E11.621 Type 2 diabetes mellitus with foot ulcer; L97.529 Non-pressure chronic ulcer of other part of left foot with unspecified severity; E03.9 Hypothyroidism, unspecified; J44.9 Chronic obstructive pulmonary disease, unspecified; E78.5 Hyperlipidemia, unspecified; I10 Essential (primary) hypertension; I25.10 Atherosclerotic heart disease of native coronary artery without angina pectoris; E11.42 Type 2 diabetes mellitus with diabetic polyneuropathy; Z88.5 Allergy status to narcotic agent; Z88.8 Allergy status to other drugs, medicaments and biological substances; Z79.890 Hormone replacement therapy; Z79.4 Long term (current) use of insulin; Z79.899 Other long term (current) drug therapy; Z79.01 Long term (current) use of anticoagulants; Z95.5 Presence of coronary angioplasty implant and graft; Z98.890 Other specified postprocedural states; Z98.51 Tubal ligation status; Z85.048 Personal history of other malignant neoplasm of rectum, rectosigmoid junction, and anus; Z87.891 Personal history of nicotine dependence; Z87.19 Personal history of other diseases of the digestive system; Z79.51 Long term (current) use of inhaled steroids
CPT/HCPCS: 36415; 73630; 80053; 80202; 82947; 83605; 85025; 85610; 85651; 85730; 86141; 93005; 93010; 93922; 93926; 96365; 96366; 96367; 96375; 99284-25; A9270; C1751; J0295; J0696; J1644; J2270; J3370; J3480; J7030; J7050

== ENCOUNTER 2022-12-06 08:07 | Inpatient (IN) | payer OTHER ==
[~2022-12-06] VITALS: Ht 167.6 cm; Wt 71.7 kg
[2022-12-06] VITALS (14 sets, daily range): BP systolic 120–197; BP diastolic 71–87
[~2022-12-06 08:07] MED LIST changes: +DICLOFENAC SOD100 G1 TOP; +KERENDIA20 MG PO; +LACT PO; +LIDO700A20 TOP; +NEURONTIN300 MG PO; +Norco 5-325 Ta1 EACH PO; +OZEMPIC2 MG/0.75 SC; +Ranitidine HCl150 M1 PO
[2022-12-06 12:19] LABS: International Normalized Ratio 1.07; Prothrombin Time Results 11.2 Sec (9.7-11.5)
[2022-12-06 12:30] LABS: Bun/Creatinine Ratio 14.3 (12.0-20.0); Calcium, Blood 9.2 mg/dL (8.5-10.1); Creatinine, Blood 0.91 mg/dL (0.40-1.00); Potassium, Blood 3.9 mmol/L (3.5-5.5)
--- NOTE | 2022-12-06 14:41 | NUR ---
ADMIT SUMMARY: REPORT RECEIVED FROM NEREIDA JORDAN. PT ARRIVED VIA GURNEY AND PIVOT TX TO BED ON R FOOT. KEPT NWB ON L FOOT. PT A/O X 4, PLEASANT AND COOPERATIVE. REPORTS NO FOOD OR DRINKS SINCE 0600 TODAY. PT DENIES HAVING IGNITION SOURCES AND REPORTS SHE QUIT SMOKING AND DOES NOT CARRY SOURCES SO SHE IS NOT TEMPTED TO SMOKE. PT DENIES NEED FOR NICOTINE PATCH AT THIS TIME. PT ORIENTED TO CALL LIGHT, FALL PRECAUTIONS. BED IN LOW POSITION CALL LIGHT AND PHONE IN REACH.
--- NOTE | 2022-12-06 16:23 | NUR ---
ALTAF AT [facility] NOTIFIED AND REQUESTED TO LET DR. MONDRAGON KNOW PT TOOK XARELTO LAST NIGHT. PER ALTAF SHE STATED SHE WOULD TELL A NURSE.
--- NOTE | 2022-12-06 18:10 | NUR ---
PT OFF UNIT FOR PROCEDURE AT THIS TIME AND WILL TX TO PCU ONCE PROCEDURE COMPLETED. PLANT OPERATOR CONTROL ROOM OPERATOR NOTIFIED.
--- NOTE | 2022-12-06 18:15 | NUR ---
GAVE UPDATE TO DAUGHTER DOUGLAS.
--- NOTE | 2022-12-06 21:45 | NUR ---
DR MONDRAGON AT BEDSIDE. HE ASSESSED RIGHT FEMORAL SHEATH AND INFUSIONS OF HEPARIN AND TPA. STATED THAT LOWER EXTREMITY PULSES MAY DISAPPEAR OVERNIGHT AND THAT WAS TO BE EXPECTED. UPDATED HIM ON PT PAIN LEVEL AND HYPERTENSION. NO NEW ORDERS AT THIS TIME
[2022-12-07] VITALS (33 sets, daily range): BP systolic 70–194; BP diastolic 35–107
[2022-12-07 03:38] LABS: BASOPHILS ABSOLUTE AUTO 0.04 K/mm3 (0.00-0.23); BASOPHILS PERCENT AUTO 0 % (0-2); EOSINOPHILS ABSOLUTE AUTO 0.05 K/mm3 (0.00-0.68); EOSINOPHILS PERCENT AUTO 0 % (0-6); Hemoglobin 13.4 g/dL (11.5-16.0); IMMATURE GRAN ABSOLUTE AUTO 0.05 K/mm3 (0.00-0.10); IMMATURE GRAN PERCENT AUTO 0 % (0-1); LYMPHOCYTES ABSOLUTE AUTO 0.94 K/mm3 (0.84-5.20); LYMPHOCYTES PERCENT AUTO 7 % (21-46); MONOCYTES PERCENT AUTO 6 % (4-13); Mean Corpuscular HGB 32.9 pg (26.0-34.0); Mean Corpuscular HGB Conc 34.4 g/dL (31.5-36.5); Mean Corpuscular Volume 96 fL (80-100); Mean Platelet Volume 9.3 fL (9.1-12.4); NEUTROPHILS ABSOLUTE AUTO 12.17 K/mm3 (1.96-9.15); NEUTROPHILS PERCENT AUTO 86 % (41-73); Platelet Count 174 K/mm3 (150-400); RDW Standard Deviation 45.2 fL (35.1-46.3); Red Blood Cell Count 4.07 M/mm3 (3.80-5.20); White Blood Cell Count 14.15 K/mm3 (4.00-11.30)
[2022-12-07 03:56] LABS: Albumin, Blood 2.9 g/dL (3.4-5.0); Albumin/Globulin Ratio 0.7 (0.8-1.8); Bilirubin, Total 0.6 mg/dL (0.1-1.0); Bun/Creatinine Ratio 13.4 (12.0-20.0); Calcium, Blood 8.5 mg/dL (8.5-10.1); Creatinine, Blood 0.74 mg/dL (0.40-1.00); Globulin, Blood 4.1 g/dL (2.2-4.0); Potassium, Blood 3.2 mmol/L (3.5-5.5)
--- NOTE | 2022-12-07 06:45 | NUR ---
SHIFT SUMMERY PT IS ALERT AND ORIENTED X4. PT HAS SHEATH IN RIGHT GROIN W/TPA AND HEPARIN INFUSING PER MD ORDER. DRESSING REINFORCED DUE TO OOZING OVERNIGHT. PT LOWER EXTREMITY PULSES ARE BOTH DOPPLER POST/TIB. PT VOIDS IN THE URINAL AND HAS COLOSTOMY W/BROWN SOFT STOOL. PT HAS REQUIRED FREQUENT INTERVENTION FOR PAIN AND HYPERTENSION THIS SHIFT. SHE HAS DENIES ANY CHEST PAIN OR PRESSURE. LEFT FOOT WOUND EXISTING ON ADMIT, PRETTY EXTENSIVE-PICS ON CHART. TR BAND WAS UNABLE TO BE REMOVED DUE TO BLEEDING. SHE HAS BEEN AFEBRILE. IGNITION RISK ASSESSED ON HOURLY ROUNDS, PT IS NOT IGNITION RISK AT THIS TIME.
--- NOTE | 2022-12-07 09:39 | NUR ---
Received call from Pt's Primary RN Alexa requesting assistance with contacting family. Pt has had a change in condition and appears to be rapidly declining. Contacted son Jaleel who is listed as Hproxy. Provided brief udate and he reports being updated by Dr Morris just prior to this RN calling. He reports being out of town but is on his way back. No ETA given. Pt resting in bed and intubated. Careteam still providing critical care. Plan: Careteam looking to transfer Pt to higher level of care. Palliative Care will remain available for supportive and therapeutic visits.
--- NOTE | 2022-12-07 10:14 | NUR ---
PATIENT BELONGINGS REACH AIR TO TRANSPORT PATIENT. SENT 1 BROWN AND 1 BLACK PURSE WITH WALLET, DENTURES AND PHONE ALL SENT WITH PATIENT.
[2022-12-07 10:22] LABS: PCO2 Arterial 29.5 mmHg (35-45); PO2 Arterial 163 mmHg (80-100); pH Blood Arterial 7.44 (7.35-7.45)
--- NOTE | 2022-12-07 10:45 | NUR ---
"Spiritual Care Family Support| Palliative Nurse Request Pt. is being prepared for transport to [facility] in [place]. Pts. daughter is in the hallway waiting room. Daughter welcomes my visit. Daughter has many questions. Listen with empathy and a calming presence. Dr. Melchor and ICU Charge nurse Jon both meet with daughter, Daughter is brought to ICU7 to see Pt. before transport. Daughter left the hospital with the Pts. belongings. This shade cloth finisher walked he to the exit. Danielle verbalized gratitude for the spiritual care support."
--- NOTE | 2022-12-07 11:10 | NUR ---
INITIAL ASSESSMENT/ SHIFT SUMMARY ASSUMED CARE OF PATIENT AROUND 0730 THIS AM. UPON INITIAL ASSESSMENT, PATIENT WAS ALERT AND ORIENTED TO ALL QUESTIONS EXCEPT FOR DATE. R RADIAL TR BAND SITE ASSESSED. LINEN SORTER RN REPORT THAT BAND DOWN TO 2 CC AIR LEFT ON THEIR SHIFT BUT HAD TO BE REINFLATED TO 11 CC AIR BECAUSE OF OOZING. THIS RN DEFLATED 2 CC AIR FROM CUFF. NO OOZING OR HEMATOMA NOTED AT THIS TIME; ARMBOARD REPLACED. R GROIN SITE OOZING BUT IS SOFT TO PALPATION; NO HEMATOMA NOTED. TPA INFUSING INTO SHEATH AT 1 MG/ HOUR. HEPARIN INFUSING INTO SIDE ARM OF SHEATH AT 6 MLS/ HOUR. PATIENT SATTING 90% AND GREATER ON RA. PATIENT HYPERTENSIVE WITH SBP 160S TO 170S. PATIENT IN SR WITH HR IN THE 90S. COLOSTOMY NOTED TO L ABD. PATIENT USING BEDPAN WITH ASSISTANCE WHEN NEEDS TO VOID. L FOOT WOUNDS/ GANGRENE NOTED. DOPPLER TIBIAL PULSES NOTED ON BILAT FEET; NO PEDAL PULSES NOTED. PATIENT NOTED TO BE HOLDING L HAND ABNORMALLY; LOOKED CONTRACTED. PATIENT ABLE TO MOVE BILAT LEGS AND WIGGLE BILAT TOES WHEN ASKED. PATIENT ABLE TO LIFT BILAT ARMS, ALTHOUGH L ARM APPEARS WEAKER. PATIENT ABLE TO OPEN R HAND WHEN ASKED. PATIENT UNABLE TO OPEN L HAND WHEN ASKED. PATIENT ABLE TO TURN HEAD TO R AND LOOK TO THE RIGHT WHEN EYES. PATIENT HAVING DIFFICULT TIME TURNING HEAD TO L AND NOT ABLE TO TURN EYES TO LEFT TO LOOK AT NURSE ON THAT SIDE. DR. FERNANDEZ INFORMED IMMEDIATELY AND CAME TO ROOM TO ASSESS PATIENT. HEPARIN DRIP AND TPA DRIP STOPPED @ 0830; DR. MONDRAGON CALLED AND STATED THAT IT WAS OKAY TO FLUSH AND SALINE LOCK SHEATH AND SIDE ARM WHERE TPA AND HEPARIN INFUSING WHILE PATIENT TAKEN DOWN FOR STAT HEAD CT. PATIENT TAKEN DOWN FOR CT AT 0831. BY TIME PATIENT BACK FROM CT, PATIENT LESS RESPONSIVE. DR. FERNANDEZ INFORMED OF CHANGE AND BACK TO BEDSIDE TO EVALUATE. DR. MORE CONSULTED, INFORMED OF CHANGE AND UPDATED ON PATIENT STATUS. TRIED TO CALL BOTH SON AND DAUGHTER AT 0849 TO INFORM OF CHANGES. DAUGHTER'S NUMBER NOT WORKING. NO DIAL TONE ON SON'S PHONE BUT MESSAGE LEFT THAT THERE IS A CHANGE IN PATIENT CONDITION AND TO CALL BACK. AT 0851 PALLIATIVE CARE NURSE INFORMED OF PATIENT STATUS AND TO PLEASE FIND A WAY TO FIND AND UPDATE FAMILY. PATIENT BECOMING MORE HYPERTENSIVE AT THIS TIME; ORDER FOR 20 MG LABETALOL RECEIVED. ONLY 5 MG LABETALOL GIVEN AND BP READING DOWN FROM 190S TO 160S. INFORMED THAT ONLY 5 MG LABETALOL GIVEN AND NOT FULL 20 MG. PATIENT NAUSEOUS AND SWEATING. PATIENT GIVEN PRN ZOFRAN. MCGLADE TO ROOM AT 904 AND REMOVED CATHETER FROM SHEATH SO WOULD NOT CLOT. SHEATH KEPT IN TO SET UP FOR ARTERIAL BLOOD PRESSURE MONITORING. AT 905 PROTAMINE GIVEN. SUPPLIES BEING SET UP FOR INTUBATION BECAUSE OF DECREASING MENTATION AND CONCERN FOR AIRWAY PROTECTION. AT 908 20 MG ETOMIDATE GIVEN. PATIENT INTUBATED AT 911; ETT 7.5 AND 23 CM AT LIPS. OG PLACED AND ATTACHED TO LOW INTERMITTENT SUCTION. 912 500 CC NS BOLUS STARTED FOR BLOOD PRESSURES READING SOFT. 36 KCENTRA GIVEN. 940 PROPOFOL STARTED AT 15 MCG/ KG/ MINUTE. 945 PROPOFOL INCREASED TO 25 MCG/ KG/ MINUTE. 952 PRN FENTANYL GIVEN FOR SIGNS OF DISCOMFORT AND HTN. 957 SON CALLED AGAIN AND NURSE LEFT MESSAGE STATING THAT [facility] IN [place] HAS ACCEPTED PATIENT SON HAD CALLED BACK EARLIER AND STATED HE WAS OUT OF TOWN BUT WAS DRIVING TO [place]. ARTERIAL BLOOD PRESSURE READING MUCH HIGHER THAN AUTOMATIC BP READING ON R ARM. 1000 PRN HYDRALAZINE GIVEN AND NICARDIPINE DRIP ORDERED BY DR. MORE. 18 G TEMP PROBE MCCLURE PLACED. REACH CREW ARRIVED TO TRANSPORT PATIENT TO [facility], ALTHOUGH NO ROOM AVAILABLE AT THIS TIME. PATIENT MOVED OVER TO [facility] AND CREW SWITCHING POTASSIUM AND PROPOFOL OVER TO THEIR PUMPS. REACH RN GIVEN NICARDIPINE DRIP TO START AT HER DISCRETION. NAHUM RN STATES ART SBP READING IN 140S ON HER MACHINE. PATIENT'S DAUGHTER DOUGLAS ([phone]) ARRIVED AND TAKEN TO ROOM TO SEE PATIENT AFTER UPDATED BY DR. MORE. DOUGLAS LEFT AND TOOK ALL PATIENT'S BELONGINGS WITH HER AT REQUEST OF REACH RNS INCLUDING 2 PURSES, ONE BLACK AND ONE WHITE, WALLET, CELL PHONE, DENTURES, CLOTHES, ETC. 1110 PATIENT TO AIR CRAFT WITH REACH CREW. NIKKI OH AT [facility] CALLED AND GIVEN REPORT. DISCHARGE AND TRANSFER COMPLETE.
== END 2022-12-07 11:38 | disposition short-term general hospital (02) | DRG 270 ==
LOC: ER 08:07 → MEDS 08:08 → ICUE 14:13 → MEDS 14:28 → ICUE 20:22
PROVIDERS: Internal Medicine Critical Care Medicine; Student in an Organized Health Care Education/Training Program; ADMIT Hospitalist
PROC: 30283B1 Transfusion of Nonautologous 4-Factor Prothrombin Complex Concentrate into Vein, Percutaneous Approach (ICD-10-PCS; 2022-12-06)
PROC: 3E05317 Introduction of Other Thrombolytic into Peripheral Artery, Percutaneous Approach (ICD-10-PCS; 2022-12-06)
PROC: 04CK3ZZ Extirpation of Matter from Right Femoral Artery, Percutaneous Approach (ICD-10-PCS; principal; 2022-12-07)
PROC: 047C3ZZ Dilation of Right Common Iliac Artery, Percutaneous Approach (ICD-10-PCS; 2022-12-07)
PROC: 5A1935Z Respiratory Ventilation, Less than 24 Consecutive Hours (ICD-10-PCS; 2022-12-07)
PROC: 0BH17EZ Insertion of Endotracheal Airway into Trachea, Via Natural or Artificial Opening (ICD-10-PCS; 2022-12-07)
PROC: 3E033XZ Introduction of Vasopressor into Peripheral Vein, Percutaneous Approach (ICD-10-PCS; 2022-12-07)
PROC: 4A033R1 Measurement of Arterial Saturation, Peripheral, Percutaneous Approach (ICD-10-PCS; 2022-12-07)
PROC: 0DH67UZ Insertion of Feeding Device into Stomach, Via Natural or Artificial Opening (ICD-10-PCS; 2022-12-07)
PROC: 02HV33Z Insertion of Infusion Device into Superior Vena Cava, Percutaneous Approach (ICD-10-PCS; 2022-12-07)
DX: E11.52 Type 2 diabetes mellitus with diabetic peripheral angiopathy with gangrene (principal); G93.6 Cerebral edema; I60.9 Nontraumatic subarachnoid hemorrhage, unspecified; G81.94 Hemiplegia, unspecified affecting left nondominant side; L03.116 Cellulitis of left lower limb; I70.262 Atherosclerosis of native arteries of extremities with gangrene, left leg; E11.621 Type 2 diabetes mellitus with foot ulcer; E03.9 Hypothyroidism, unspecified; L97.529 Non-pressure chronic ulcer of other part of left foot with unspecified severity; K21.9 Gastro-esophageal reflux disease without esophagitis; I25.10 Atherosclerotic heart disease of native coronary artery without angina pectoris; G47.33 Obstructive sleep apnea (adult) (pediatric); E66.9 Obesity, unspecified; E55.9 Vitamin D deficiency, unspecified; E11.42 Type 2 diabetes mellitus with diabetic polyneuropathy; F32.A Depression, unspecified; E78.5 Hyperlipidemia, unspecified; J44.9 Chronic obstructive pulmonary disease, unspecified; I10 Essential (primary) hypertension; Z88.8 Allergy status to other drugs, medicaments and biological substances; Z88.5 Allergy status to narcotic agent; Z79.890 Hormone replacement therapy; Z79.51 Long term (current) use of inhaled steroids; Z79.84 Long term (current) use of oral hypoglycemic drugs; Z79.891 Long term (current) use of opiate analgesic; Z98.51 Tubal ligation status; Z98.890 Other specified postprocedural states; Z87.891 Personal history of nicotine dependence; Z85.048 Personal history of other malignant neoplasm of rectum, rectosigmoid junction, and anus; Z95.5 Presence of coronary angioplasty implant and graft; Z95.820 Peripheral vascular angioplasty status with implants and grafts; Z89.421 Acquired absence of other right toe(s); Z93.3 Colostomy status; Z68.23 Body mass index [BMI] 23.0-23.9, adult
CPT/HCPCS: 31500; 36415; 36569; 70450; 71045; 76937; 80048; 80053; 82803; 82947; 85025; 85384; 85610; 94002; 94640; 94664; 94762; 99152; 99153; 99284; A9270; C1714; C1725; C1751; C1757; C1769; C1887; C1894; J0360; J1170; J1644; J2250; J2405; J2543; J2704; J2720; J2997; J3010; J3370; J3480; J7030; J7040; J7050; J7168; Q9967